=== PATIENT | male | born 1960 | race Hispanic/Latino ===

== ENCOUNTER → 2019-08-26 | Day surgery (SDC) | payer BC ==
[2019-08-23 17:15] LABS: BASOPHILS % 0.6 % (0.0-1.0); EOSINOPHILS # (AUTO) 0.2 (0.0-0.4); EOSINOPHILS % 3.4 % (0.0-6.0); HEMATOCRIT 39.8 % (38.2-49.6); HEMOGLOBIN 13.7 g/dL (14.0-18.0); LYMPHOCYTES # (AUTO) 1.5 (1.0-3.2); LYMPHOCYTES % 32.8 % (18.0-39.1); MEAN CORPUSCULAR HEMOGLOBIN 32.4 pg (28-32); MEAN CORPUSCULAR HGB CONC 34.4 g/dL (31-35); MEAN CORPUSCULAR VOLUME 94.1 fL (81-99); MONOCYTES # (AUTO) 0.6 (0.2-0.8); MONOCYTES % 11.7 % (4.4-11.3); NEUTROPHILS # (AUTO) 2.4 (2.1-6.9); NEUTROPHILS % 51.3 % (38.7-80.0); PLATELET COUNT 107 x10e3/uL (140-360); RED BLOOD COUNT 4.23 x10e6/uL (4.3-5.7); RED CELL DISTRIBUTION WIDTH 14.2 % (11.7-14.4)
[2019-08-23 17:31] LABS: ANION GAP 12.2 mmol/L (8-16); BLOOD UREA NITROGEN 18 mg/dL (7-26); BUN/CREATININE RATIO 21 (6-25); CALCIUM 9.9 mg/dL (8.4-10.2); CARBON DIOXIDE 26 mmol/L (22-29); CHLORIDE 104 mmol/L (98-107); CREATININE, SERUM 0.87 mg/dL (0.72-1.25); EST GLOMERULAR FILTRATION RATE > 60 ML/MIN (60-); GLUCOSE 83 mg/dL (74-118); POTASSIUM 4.2 mmol/L (3.5-5.1); SODIUM 138 mmol/L (136-145)
[2019-08-23 17:49] LABS: BILIRUBIN,DIRECT 0.3 mg/dL (0.0-0.5)
--- NOTE | 2019-08-23 17:49 | Diagnostic Imaging Report ---
Frontal and lateral views of the chest. HISTORY: Preop, screening colonoscopy COMPARISON: None available. DISCUSSION: Lungs: No evidence of a consolidative pneumonia or pulmonary alveolar edema. Pleura: No pleural effusion or pneumothorax. Heart and mediastinum: The cardiomediastinal silhouette appear(s) unremarkable. Bones and soft tissues: Mild right convex curvature of the thoracic spine. IMPRESSION: No acute radiographic abnormality. Signed by: Dr. Eben Guy D.O., M.M.M. on 08/23/2019 5:46 PM
[~2019-08-26] MED LIST: AMLODIPINE BESYL5 MG PO; ATENOLOL50 MG PO; FENTANYL CITRATE/PF 100MCG/2 ML INJ ONE; LIDOCAINE HCL 2% LOCAL INJ 5 ML SDV VIAL INJ ONE; MIDAZOLAM HCL 2 MG/2 ML VIAL ONE; PROPOFOL IV EMULSION 10 MG/ML 20 ML VIAL ONE
--- OUTSIDE RECORDS SUMMARY | 2019-08-26 05:47 | XMS REPORT | Summary of Care ---
Author Author [facility] [place] Organization [facility] [place] Address Unknown Phone Unavailable Encounter HQ Linda(FIN) [phone] Date(s): 10/09/18 - 10/09/18 [facility] [address] [place] [phone] Encounter Diagnosis Abnormality of alphafetoprotein (Final) - 10/15/18 Other cirrhosis of liver (Final) - Other ascites (Final) - Chronic viral hepatitis C (Final) - Calculus of kidney (Final) - Discharge Disposition: Home or Self Care Attending Physician: Vanda Rashid NP Referring Physician: Vanda Rashid NP Vital Signs No data available for this section Problem List Condition Effective Dates Status Health Status Informant Anemia(Confirmed) Active Cirrhosis(Confirmed) Active Esophageal Active varices(Confirmed) Migraine(Confirmed) Resolved HTN Resolved (hypertension)(Confi rmed) Hypertension(Confirm Active ed) Jaundice(Confirmed) Resolved Elevated liver Active enzymes(Confirmed) Liver Active mass(Confirmed) Low back Active pain(Confirmed) Nausea & Resolved vomiting(Confirmed) Class 1 Active obesity(Confirmed) Colon Resolved polyps(Confirmed) Hepatitis Active C(Confirmed) Weight Active loss(Confirmed) Allergies, Adverse Reactions, Alerts No Known Medication Allergies Medications No data available for this section Results No data available for this section Immunizations Not Given Vaccine Date Status Refusal Reason influenza virus vaccine, inactivated 01/13/18 Not Given Patient Refuses Procedures Procedure Date Related Diagnosis Body Site Status Colonoscopy1, 2 09/04/17 Completed 1repeat 09/15 2repeat 3 years Social History Social History Type Response Substance Abuse Use: None. Exercise Exercise type: Walking. Employment/School Status: Employed. 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 Alcohol Current, Type Beer. Frequency: 1-2 times per week. Smoking Status Former smoker; Type: Cigarettes; Concerns about tobacco use in household: No; Exposure to Tobacco Smoke self; Cigarette Smoking Last 365 Days Yes; Reg Smoking Cessation Counseling Yes1 entered on: 03/07/19 1STOP SMOKING IN THE LAST 6MONTHS Assessment and Plan No data available for this section
--- OUTSIDE RECORDS SUMMARY | 2019-08-26 05:47 | XMS REPORT | Continuity of Care Document ---
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 01/03/2019 [facility] ELECTROLYTES B/C Ratio 14 6 - 25 01/03/2019 [facility] ELECTROLYTES Globulin 4.3 2.7 - 4.2 01/03/2019 [facility] ELECTROLYTES A/G Ratio 1.0 0.7 - 1.6 01/03/2019 [facility] ELECTROLYTES Glucose Lvl 114 70 - 99 01/03/2019 [facility] ELECTROLYTES BUN 13 7 - 22 01/03/2019 [facility] ELECTROLYTES Creatinine Lvl 0.95 0.50 - 1.40 01/03/2019 [facility] ELECTROLYTES Sodium Lvl 139 135 - 145 01/03/2019 [facility] ELECTROLYTES Potassium Lvl 3.8 3.5 - 5.1 01/03/2019 [facility] ELECTROLYTES Chloride Lvl 107 95 - 109 01/03/2019 [facility] ELECTROLYTES CO2 29 24 - 32 01/03/2019 [facility] ELECTROLYTES Calcium Lvl 9.5 8.5 - 10.5 01/03/2019 [facility] ELECTROLYTES Total Protein 8.4 6.4 - 8.4 01/03/2019 [facility] ELECTROLYTES Albumin Lvl 4.1 3.5 - 5.0 01/03/2019 [facility] ELECTROLYTES ALT 33 0 - 65 01/03/2019 [facility] ELECTROLYTES AST 32 0 - 37 01/03/2019 [facility] ELECTROLYTES Alk Phos 108 39 - 136 01/03/2019 [facility] ELECTROLYTES Bili Total 0.9 0.2 - 1.3 01/03/2019 [facility] ELECTROLYTES eGFR 87 01/03/2019 Result Comment: The eGFR is calculated using the CKD-EPI formula. In most young, healthy individuals the eGFR will be >90 mL/min/1.73m2. The eGFR declines with age. An eGFR of 60-89 may be normal in some populations, particularly the elderly, for whom the CKD-EPI formula has not been extensively validated. Use of the eGFR is not recommended in the following populations:

Individuals with unstable creatinine concentrations, including patients and those with serious co-morbid conditions.

Patients with extremes in muscle mass or diet.

The data above are obtained from the National Kidney Disease Education Program (NKDEP) which additionally recommends that when the eGFR is used in patients with extremes of body mass index for purposes of drug dosing, the eGFR should be multiplied by the estimated BMI. [facility] WBC 4.5 3.7 - 10.4 01/03/2019 [facility] RBC 4.25 4.70 - 6.10 01/03/2019 [facility] Hgb 13.9 14.0 - 18.0 01/03/2019 [facility] Hct 41.0 42.0 - 54.0 01/03/2019 [facility] MCV 96.5 80.0 - 94.0 01/03/2019 [facility] MCH 32.7 27.0 - 31.0 01/03/2019 [facility] MCHC 33.8 32.0 - 36.0 01/03/2019 [facility] RDW 14.5 11.5 - 14.5 01/03/2019 [facility] Platelet 88 133 - 450 01/03/2019 [facility] MPV 9.4 7.4 - 10.4 01/03/2019 [facility] Segs 68.5 45.0 - 75.0 01/03/2019 [facility] Lymphocytes 20.5 20.0 - 40.0 01/03/2019 [facility] Monocytes 8.9 2.0 - 12.0 01/03/2019 [facility] HEMATOLOGY Eosinophils 1.3 0.0 - 4.0 01/03/2019 [facility] HEMATOLOGY Basophils 0.8 0.0 - 1.0 01/03/2019 [facility] HEMATOLOGY Neutrophils # 3.1 1.5 - 8.1 01/03/2019 [facility] HEMATOLOGY Lymphocytes # 0.9 1.0 - 5.5 01/03/2019 [facility] HEMATOLOGY Monocytes # 0.4 0.0 - 0.8 01/03/2019 [facility] HEMATOLOGY Eosinophils # 0.1 0.0 - 0.5 01/03/2019 [facility] URINE AND STOOL UA Color Yellow *NA* (01/02/19 8:00 PM) Yellow 01/03/2019 [facility] URINE AND STOOL UA Turbidity Clear (01/02/19 8:00 PM) Clear 01/03/2019 [facility] URINE AND STOOL UA Spec Grav 1.014 <=1.030 01/03/2019 [facility] URINE AND STOOL UA pH 7.0 5.0 - 8.0 01/03/2019 [facility] URINE AND STOOL UA Protein Negative (01/02/19 8:00 PM) Negative 01/03/2019 [facility] URINE AND STOOL UA Glucose Negative *NA* (01/02/19 8:00 PM) Negative 01/03/2019 [facility] URINE AND STOOL UA Ketones Negative *NA* (01/02/19 8:00 PM) Negative 01/03/2019 [facility] URINE AND STOOL UA Bili Negative *NA* (01/02/19 8:00 PM) Negative 01/03/2019 [facility] URINE AND STOOL UA Blood Negative (01/02/19 8:00 PM) Negative 01/03/2019 [facility] URINE AND STOOL UA Nitrite Negative (01/02/19 8:00 PM) Negative 01/03/2019 [facility] URINE AND STOOL UA Leuk Est Negative (01/02/19 8:00 PM) Negative 01/03/2019 [facility] URINE AND STOOL UA Sq Epi None Seen (01/02/19 8:00 PM) Few 01/03/2019 [facility] URINE AND STOOL UA WBC 2 0 - 5 01/03/2019 [facility] URINE AND STOOL UA RBC 2 0 - 2 01/03/2019 [facility] URINE AND STOOL UA Mucus Few /LPF None Seen /LPF 01/03/2019 [facility] URINE AND STOOL UA Urobilinogen 0.2 0.1 - 1.0 01/03/2019 Result Comment: Urobilinogen performed on the [employer]inite[employer] analyzer. 01/02/2019 20:41 [facility] CHEM PANEL Total Protein 7.3 6.4 - 8.4 10/19/2018 [facility] CHEM PANEL Bili Indirect 0.5 0.0 - 1.0 10/19/2018 [facility] CHEM PANEL ALT 32 0 - 65 10/19/2018 [facility] CHEM PANEL Bili Total 0.9 0.2 - 1.3 10/19/2018 [facility] CHEM PANEL Bili Direct 0.4 0.0 - 0.3 10/19/2018 [facility] CHEM PANEL AST 36 0 - 37 10/19/2018 [facility] CHEM PANEL Albumin Lvl 3.4 3.5 - 5.0 10/19/2018 [facility] CHEM PANEL Alk Phos 99 39 - 136 10/19/2018 [facility] CHEM PANEL A/G Ratio 0.9 0.7 - 1.6 10/19/2018 [facility] CHEM PANEL Globulin 3.9 2.7 - 4.2 10/19/2018 [facility] ELECTROLYTES AGAP 10.7 10.0 - 20.0 10/19/2018 [facility] ELECTROLYTES eGFR 98 10/19/2018 Result Comment: The eGFR is calculated using the CKD-EPI formula. In most young, healthy individuals the eGFR will be >90 mL/min/1.73m2. The eGFR declines with age. An eGFR of 60-89 may be normal in some populations, particularly the elderly, for whom the CKD-EPI formula has not been extensively validated. Use of the eGFR is not recommended in the following populations:

Individuals with unstable creatinine concentrations, including patients and those with serious co-morbid conditions.

Patients with extremes in muscle mass or diet.

The data above are obtained from the National Kidney Disease Education Program (NKDEP) which additionally recommends that when the eGFR is used in patients with extremes of body mass index for purposes of drug dosing, the eGFR should be multiplied by the estimated BMI. [facility] ELECTROLYTES Creatinine Lvl 0.79 0.50 - 1.40 10/19/2018 [facility] ELECTROLYTES Calcium Lvl 8.9 8.5 - 10.5 10/19/2018 [facility] ELECTROLYTES Sodium Lvl 141 135 - 145 10/19/2018 [facility] ELECTROLYTES Chloride Lvl 106 95 - 109 10/19/2018 [facility] ELECTROLYTES Potassium Lvl 3.7 3.5 - 5.1 10/19/2018 [facility] ELECTROLYTES CO2 28 24 - 32 10/19/2018 [facility] ELECTROLYTES Glucose Lvl 99 70 - 99 10/19/2018 [facility] ELECTROLYTES BUN 13 7 - 22 10/19/2018 [facility] HEMATOLOGY INR 1.15 0.85 - 1.17 10/19/2018 [facility] HEMATOLOGY PT 14.7 12.0 - 14.7 10/19/2018 [facility] HEMATOLOGY MCHC 33.6 32.0 - 36.0 10/19/2018 [facility] HEMATOLOGY Platelet 92 133 - 450 10/19/2018 [facility] HEMATOLOGY RDW 14.2 11.5 - 14.5 10/19/2018 [facility] HEMATOLOGY MPV 9.8 7.4 - 10.4 10/19/2018 [facility] HEMATOLOGY WBC 3.0 3.7 - 10.4 10/19/2018 [facility] HEMATOLOGY Hgb 12.2 14.0 - 18.0 10/19/2018 [facility] HEMATOLOGY MCV 102.1 80.0 - 94.0 10/19/2018 [facility] HEMATOLOGY Hct 36.4 42.0 - 54.0 10/19/2018 [facility] HEMATOLOGY RBC 3.56 4.70 - 6.10 10/19/2018 [facility] HEMATOLOGY MCH 34.4 27.0 - 31.0 10/19/2018 [facility] HEMATOLOGY Lymphocytes # 1.3 1.0 - 5.5 10/19/2018 [facility] HEMATOLOGY Monocytes # 0.4 0.0 - 0.8 10/19/2018 [facility] HEMATOLOGY Eosinophils # 0.1 0.0 - 0.5 10/19/2018 [facility] HEMATOLOGY Macrocyte 1+ *ABN* (10/19/18 10:30 AM) None Seen 10/19/2018 [facility] HEMATOLOGY Neutrophils # 1.1 1.5 - 8.1 10/19/2018 [facility] HEMATOLOGY Basophils 0.8 0.0 - 1.0 10/19/2018 [facility] HEMATOLOGY Eosinophils 4.2 0.0 - 4.0 10/19/2018 [facility] HEMATOLOGY Monocytes 12.6 2.0 - 12.0 10/19/2018 [facility] HEMATOLOGY Lymphocytes 44.5 20.0 - 40.0 10/19/2018 [facility] HEMATOLOGY Segs 37.9 45.0 - 75.0 10/19/2018 [facility] MOLECULAR DIAGNOSTIC HCV RNA Log10 1.3 10/19/2018 [facility] MOLECULAR DIAGNOSTIC HCV RNA VirLoad 19 10/19/2018 [facility] TUMOR MARKERS AFP 39.2 0.0 - 11.0 10/19/2018 [facility] CHEM PANEL Bili Indirect 0.5 0.0 - 1.0 09/27/2018 [facility] CHEM PANEL ALT 34 0 - 65 09/27/2018 [facility] CHEM PANEL Bili Direct 0.9 0.0 - 0.3 09/27/2018 [facility] CHEM PANEL Alk Phos 107 39 - 136 09/27/2018 [facility] CHEM PANEL Bili Total 1.4 0.2 - 1.3 09/27/2018 [facility] CHEM PANEL AST 39 0 - 37 09/27/2018 [facility] CHEM PANEL Total Protein 7.4 6.4 - 8.4 09/27/2018 [facility] CHEM PANEL Albumin Lvl 3.2 3.5 - 5.0 09/27/2018 [facility] CHEM PANEL Globulin 4.2 2.7 - 4.2 09/27/2018 [facility] CHEM PANEL A/G Ratio 0.8 0.7 - 1.6 09/27/2018 [facility] CHEM PANEL eGFR 100 09/27/2018 Result Comment: The eGFR is calculated using the CKD-EPI formula. In most young, healthy individuals the eGFR will be >90 mL/min/1.73m2. The eGFR declines with age. An eGFR of 60-89 may be normal in some populations, particularly the elderly, for whom the CKD-EPI formula has not been extensively validated. Use of the eGFR is not recommended in the following populations:

Individuals with unstable creatinine concentrations, including patients and those with serious co-morbid conditions.

Patients with extremes in muscle mass or diet.

The data above are obtained from the National Kidney Disease Education Program (NKDEP) which additionally recommends that when the eGFR is used in patients with extremes of body mass index for purposes of drug dosing, the eGFR should be multiplied by the estimated BMI. [facility] CHEM PANEL Chloride Lvl 104 95 - 109 09/27/2018 [facility] CHEM PANEL CO2 27 24 - 32 09/27/2018 [facility] CHEM PANEL Calcium Lvl 8.8 8.5 - 10.5 09/27/2018 [facility] CHEM PANEL Potassium Lvl 3.7 3.5 - 5.1 09/27/2018 [facility] CHEM PANEL Creatinine Lvl 0.77 0.50 - 1.40 09/27/2018 [facility] CHEM PANEL Glucose Lvl 98 70 - 99 09/27/2018 [facility] CHEM PANEL BUN 10 7 - 22 09/27/2018 [facility] CHEM PANEL Sodium Lvl 141 135 - 145 09/27/2018 [facility] CHEM PANEL AGAP 13.7 10.0 - 20.0 09/27/2018 [facility] CHEM PANEL A 2 Macroglob 420 110 - 276 09/27/2018 [facility] CHEM PANEL Fibrosis Score 0.91 0.00 - 0.21 09/27/2018 [facility] CHEM PANEL Fibrosis Stage Comment 09/27/2018 Result Comment: F4 - Cirrhosis [facility] CHEM PANEL Necroinflam Act Scoring Comment 09/27/2018 Result Comment:
<0.17=Grade A0 - No Activity
0.17 - 0.29=Grade A0 - A1
0.29 - 0.36=Grade A1 - Minimal activity
0.36 - 0.52=Grade A1 - A2
0.52 - 0.60=Grade A2 - Moderate activity
0.60 - 0.62=Grade A2 - A3
>0.62=Grade A3 - Severe activity [facility] CHEM PANEL Fibrosis Scoring Comment 09/27/2018 Result Comment:
<0.21=Stage F0 - No fibrosis
0.21 - 0.27=Stage F0 - F1
0.27 - 0.31=Stage F1 - Portal fibrosis
0.31 - 0.48=Stage F1 - F2
0.48 - 0.58=Stage F2 - Bridging fibrosis with few septa
0.58 - 0.72=Stage F3 - Bridging fibrosis with many septa
0.72 - 0.74=Stage F3 - F4
>0.74=Stage F4 - Cirrhosis [facility] CHEM PANEL Fibrosis Interp Comment 09/27/2018 Result Comment:
Quantitative results of 6 biochemical tests are analyzed
using a computational algorithm to provide a quantitative
surrogate marker (0.0-1.0) for liver fibrosis (METAVIR F0-
F4) and for necroinflammatory activity (METAVIR A0-A3). [facility] CHEM PANEL ALANINE AMINOTRANSFERASE 29 0 - 55 09/27/2018 [facility] CHEM PANEL Necroinflam Act. Grade A0-A1 09/27/2018 [facility] CHEM PANEL Necroinflam Act. Score 0.29 0.00 - 0.17 09/27/2018 [facility] CHEM PANEL GAMMA GLUTAMYL TRANSFERASE 77 0 - 65 09/27/2018 [facility] CHEM PANEL Bili Total 1.5 0.0 - 1.2 09/27/2018 [facility] CHEM PANEL Haptoglobin 63 34 - 200 09/27/2018 [facility] CHEM PANEL Apolipoprotein A-1 132 101 - 178 09/27/2018 [facility] CHEM PANEL Liver Fibrosis Comment 2 Comment 09/27/2018 Result Comment:
This test was developed and its performance characteristics
determined by [facility]. It has not been cleared or approved
by the Food and Drug Administration. The FDA has
determined that such clearance or approval is not
necessary.

For questions regarding this report please contact customer
service at 1- [phone].
Performed At: [facility]
[address], [place] [id number]
Norman Bang MD Ph:[phone] [facility] CHEM PANEL Liver Fibrosis Limitations Comment 09/27/2018 Result Comment: The negative predictive value of a Fibrotest score <0.31
(absence of clinically significant fibrosis) was 85% when
compared to liver biopsy in 1,270 HCV infected patients
with a 38% prevalence of significant liver fibrosis (F2, 3
or 4). The positive predictive value of a Fibro-test score
>0.48 (F2, 3, 4) was 61% in that same patient cohort. HCV
FibroSURE is not recommended in patients with Gilbert
Disease, acute hemolysis (e.g. HCV ribavirin therapy
mediated hemolysis) acute hepa-titis of the liver, extra-
hepatic cholestasis, transplant patients, and/or renal
insufficiency patients. Any of these clinical situations
may lead to inaccurate quantitative predictions of
fibrosis and necroinflammatory activity in the liver. [facility] HEMATOLOGY INR 1.11 0.85 - 1.17 09/27/2018 [facility] HEMATOLOGY PT 14.3 12.0 - 14.7 09/27/2018 [facility] HEMATOLOGY Platelet 89 133 - 450 09/27/2018 [facility] HEMATOLOGY MPV 9.4 7.4 - 10.4 09/27/2018 [facility] HEMATOLOGY RDW 14.9 11.5 - 14.5 09/27/2018 [facility] HEMATOLOGY MCHC 34.1 32.0 - 36.0 09/27/2018 [facility] HEMATOLOGY Hgb 12.5 14.0 - 18.0 09/27/2018 [facility] HEMATOLOGY Hct 36.6 42.0 - 54.0 09/27/2018 [facility] HEMATOLOGY RBC 3.53 4.70 - 6.10 09/27/2018 [facility] HEMATOLOGY WBC 5.3 3.7 - 10.4 09/27/2018 [facility] HEMATOLOGY MCH 35.3 27.0 - 31.0 09/27/2018 [facility] HEMATOLOGY MCV 103.8 80.0 - 94.0 09/27/2018 [facility] HEMATOLOGY DNA Mutation Analysis Comment 09/27/2018 Result Comment: NO MUTATION IDENTIFIED

Interpretation:
This patient's sample was analyzed for the hereditary
hemochromatosis (HH) mutations C282Y, H63D, S65C. No
mutation was identified. The mutations analyzed by [facility] [facility]
are most common in the population, and up to 90%
of affected Caucasians will have a positive test result.
Because this panel does not identify rare HH mutations or
HH mutations found in other ethnic groups, there are a
small number of people who may have a negative test but may
actually be affected. The diagnosis of HH should include
clinical findings and other test results such as
transferrin- iron saturation and/or serum ferritin studies
and/or liver biopsy. If this patient has a history of HH,
in many cases a specific carrier risk can be determined
based on this negative result.
Methodology:
DNA Analysis of the HFE gene was performed by PCR
amplification followed by restriction enzyme digestion
analyses.

Reference:
Eze JS and Dandre AP. (2000). Ashleigh Test 4:97-101.
Lashanda NELSON et al. (1999). AM J Prev Med 16:134-140.
Dia Edward (2002). Lancet 360(4947):1673-22.
Jocelyn Katz et al. (2002). Blood Cells, Molecules. and
Diseases. 29(3):418- 432.
Jere Paredes et al. (2003). Ashleigh Med. 5(1):1-8.
Lashanda NELSON et al. (2003). Ashleigh Med. 5(4):304-10.

This test was developed and its performance characteristics
determined by [facility]. It has not been cleared or approved
by the Food and Drug Administration.

Genetic counselors are available for health care providers
to discuss results at [phone].

Elisabet Terry, PhD, [facility]
Aide Maria, PhD, [facility]
Lisa Holt M.S., PhD, [facility]
Kimberley Guy, PhD, [facility]
Leroy Sanchez, PhD, [facility]
Jose Alberto Gillette, PhD, [facility]
Performed At: [facility]
[address] [place], [place] [id number]
Bobby Canela MD Ph:[phone] [facility] HEMATOLOGY Lymphocytes # 1.4 1.0 - 5.5 09/27/2018 [facility] HEMATOLOGY Neutrophils # 3.0 1.5 - 8.1 09/27/2018 [facility] HEMATOLOGY Basophils 0.6 0.0 - 1.0 09/27/2018 [facility] HEMATOLOGY Eosinophils 3.6 0.0 - 4.0 09/27/2018 [facility] HEMATOLOGY Eosinophils # 0.2 0.0 - 0.5 09/27/2018 [facility] HEMATOLOGY Monocytes # 0.7 0.0 - 0.8 09/27/2018 [facility] HEMATOLOGY Segs 57.4 45.0 - 75.0 09/27/2018 [facility] HEMATOLOGY Monocytes 12.3 2.0 - 12.0 09/27/2018 [facility] HEMATOLOGY Lymphocytes 26.1 20.0 - 40.0 09/27/2018 [facility] HEMATOLOGY Macrocyte 1+ *ABN* (09/27/18 11:05 AM) None Seen 09/27/2018 [facility] MOLECULAR DIAGNOSTIC HBV DNA Log10 <1.3 09/27/2018 [facility] MOLECULAR DIAGNOSTIC Hep B PCR Qnt Not Detected (09/27/18 11:05 AM) 09/27/2018 [facility] MOLECULAR DIAGNOSTIC HCV RNA VirLoad 278 09/27/2018 [facility] MOLECULAR DIAGNOSTIC HCV RNA Log10 2.4 09/27/2018 [facility] TUMOR MARKERS AFP 173.1 0.0 - 11.0 09/27/2018 [facility] CHEM PANEL eGFR 98 08/29/2018 Result Comment: The eGFR is calculated using the CKD-EPI formula. In most young, healthy individuals the eGFR will be >90 mL/min/1.73m2. The eGFR declines with age. An eGFR of 60-89 may be normal in some populations, particularly the elderly, for whom the CKD-EPI formula has not been extensively validated. Use of the eGFR is not recommended in the following populations:

Individuals with unstable creatinine concentrations, including patients and those with serious co-morbid conditions.

Patients with extremes in muscle mass or diet.

The data above are obtained from the National Kidney Disease Education Program (NKDEP) which additionally recommends that when the eGFR is used in patients with extremes of body mass index for purposes of drug dosing, the eGFR should be multiplied by the estimated BMI. [facility] CHEM PANEL POC Creatinine 0.8 0.5 - 1.4 08/29/2018 [facility] ANEMIA STUDY TIBC 269 228 - 428 08/17/2018 [facility] ANEMIA STUDY Iron 258 45 - 160 08/17/2018 [facility] ANEMIA STUDY UIBC 11 110 - 370 08/17/2018 [facility] ANEMIA STUDY % Satur Fe 96 12 - 57 08/17/2018 [facility] ANEMIA STUDY Ferritin Lvl 590 22 - 275 08/17/2018 [facility] CHEM PANEL Ammonia 43.0 <=45.0 uMol/L 08/17/2018 [facility] CHEM PANEL Bili Total 3.3 0.2 - 1.3 08/17/2018 [facility] CHEM PANEL Bili Direct 2.5 0.0 - 0.3 08/17/2018 [facility] CHEM PANEL Bili Indirect 0.8 0.0 - 1.0 08/17/2018 [facility] CHEM PANEL ALT 75 0 - 65 08/17/2018 [facility] CHEM PANEL AST 107 0 - 37 08/17/2018 [facility] CHEM PANEL Alk Phos 132 39 - 136 08/17/2018 [facility] CHEM PANEL Albumin Lvl 3.0 3.5 - 5.0 08/17/2018 [facility] CHEM PANEL Total Protein 7.4 6.4 - 8.4 08/17/2018 [facility] CHEM PANEL Globulin 4.4 2.7 - 4.2 08/17/2018 [facility] CHEM PANEL A/G Ratio 0.7 0.7 - 1.6 08/17/2018 [facility] CHEM PANEL eGFR 98 08/17/2018 Result Comment: The eGFR is calculated using the CKD-EPI formula. In most young, healthy individuals the eGFR will be >90 mL/min/1.73m2. The eGFR declines with age. An eGFR of 60-89 may be normal in some populations, particularly the elderly, for whom the CKD-EPI formula has not been extensively validated. Use of the eGFR is not recommended in the following populations:

Individuals with unstable creatinine concentrations, including patients and those with serious co-morbid conditions.

Patients with extremes in muscle mass or diet.

The data above are obtained from the National Kidney Disease Education Program (NKDEP) which additionally recommends that when the eGFR is used in patients with extremes of body mass index for purposes of drug dosing, the eGFR should be multiplied by the estimated BMI. [facility] CHEM PANEL Potassium Lvl 3.8 3.5 - 5.1 08/17/2018 [facility] CHEM PANEL CO2 29 24 - 32 08/17/2018 [facility] CHEM PANEL Calcium Lvl 9.2 8.5 - 10.5 08/17/2018 [facility] CHEM PANEL Sodium Lvl 141 135 - 145 08/17/2018 [facility] CHEM PANEL Chloride Lvl 105 95 - 109 08/17/2018 [facility] CHEM PANEL BUN 11 7 - 22 08/17/2018 [facility] CHEM PANEL Glucose Lvl 100 70 - 99 08/17/2018 [facility] CHEM PANEL Creatinine Lvl 0.81 0.50 - 1.40 08/17/2018 [facility] CHEM PANEL AGAP 10.8 10.0 - 20.0 08/17/2018 [facility] DRUG SCREEN Cannab Scr Negative (08/17/18 10:30 AM) Negative 08/17/2018 [facility] DRUG SCREEN Phencyclidine Scr Negative (08/17/18 10:30 AM) Negative 08/17/2018 [facility] DRUG SCREEN Opiate Scr Negative (08/17/18 10:30 AM) Negative 08/17/2018 [facility] DRUG SCREEN Methadone Scr Negative (08/17/18 10:30 AM) Negative 08/17/2018 [facility] DRUG SCREEN Cocaine Scr Negative (08/17/18 10:30 AM) Negative 08/17/2018 [facility] DRUG SCREEN Benzodiaz Scr Negative (08/17/18 10:30 AM) Negative 08/17/2018 [facility] DRUG SCREEN Sienna Scr Negative (08/17/18 10:30 AM) Negative 08/17/2018 [facility] DRUG SCREEN Amph Scr Negative (08/17/18 10:30 AM) Negative 08/17/2018 [facility] DRUG SCREEN 6-Acetylmor Scr Negative (08/17/18 10:30 AM) Negative 08/17/2018 [facility] DRUG SCREEN Cutoff Values See Note (08/17/18 10:30 AM) 08/17/2018 [facility] HEMATOLOGY Monocytes # 0.4 0.0 - 0.8 08/17/2018 [facility] HEMATOLOGY Eosinophils # 0.1 0.0 - 0.5 08/17/2018 [facility] HEMATOLOGY Eosinophils 3.2 0.0 - 4.0 08/17/2018 [facility] HEMATOLOGY Basophils 0.3 0.0 - 1.0 08/17/2018 [facility] HEMATOLOGY Lymphocytes # 1.1 1.0 - 5.5 08/17/2018 [facility] HEMATOLOGY Neutrophils # 2.4 1.5 - 8.1 08/17/2018 [facility] HEMATOLOGY Monocytes 10.2 2.0 - 12.0 08/17/2018 [facility] HEMATOLOGY Segs 59.0 45.0 - 75.0 08/17/2018 [facility] HEMATOLOGY Lymphocytes 27.3 20.0 - 40.0 08/17/2018 [facility] HEMATOLOGY INR 1.11 0.85 - 1.17 08/17/2018 [facility] HEMATOLOGY PT 14.3 12.0 - 14.7 08/17/2018 [facility] HEMATOLOGY MPV 10.1 7.4 - 10.4 08/17/2018 [facility] HEMATOLOGY RDW 19.4 11.5 - 14.5 08/17/2018 [facility] HEMATOLOGY Platelet 87 133 - 450 08/17/2018 [facility] HEMATOLOGY MCHC 34.7 32.0 - 36.0 08/17/2018 [facility] HEMATOLOGY Hct 37.4 42.0 - 54.0 08/17/2018 [facility] HEMATOLOGY MCV 99.6 80.0 - 94.0 08/17/2018 [facility] HEMATOLOGY MCH 34.6 27.0 - 31.0 08/17/2018 [facility] HEMATOLOGY Hgb 13.0 14.0 - 18.0 08/17/2018 [facility] HEMATOLOGY WBC 4.1 3.7 - 10.4 08/17/2018 [facility] HEMATOLOGY RBC 3.76 4.70 - 6.10 08/17/2018 [facility] IMMUNOLOGY HIV Ag/Ab 4th Gen Negative *NA* (08/17/18 10:30 AM) Negative 08/17/2018 [facility] IMMUNOLOGY IgG Lvl 1690 700 - 1600 08/17/2018 [facility] IMMUNOLOGY IgG3 210 15 - 102 08/17/2018 [facility] IMMUNOLOGY IgG2 288 130 - 555 08/17/2018 [facility] IMMUNOLOGY IgG1 1189 248 - 810 08/17/2018 [facility] IMMUNOLOGY IgG4 56 2 - 96 08/17/2018 Result Comment: Performed At: [facility]
[address], [place] [id number]
Soraida Calderon MD Ph:[phone]
Performed At: [facility]
[address] [place], [place] [id number]
Rigo Rowell MD Ph:[phone] [facility] IMMUNOLOGY Hep B Core Ab Positive *NA* (08/17/18 10:30 AM) Negative 08/17/2018 [facility] IMMUNOLOGY Hep Bs Ab <3.1 <=7.4 mIU/mL 08/17/2018 [facility] IMMUNOLOGY Hep A Tot Positive *NA* (08/17/18 10:30 AM) Negative 08/17/2018 [facility] TOXICOLOGY Etoh (%) <0.003 08/17/2018 [facility] TOXICOLOGY Ethanol Lvl <3 08/17/2018 [facility] TUMOR MARKERS CA 19-9 24.2 0.0 - 35.0 08/17/2018 [facility] TUMOR MARKERS CEA 4.1 0.0 - 3.0 08/17/2018 [facility] TUMOR MARKERS AFP 77.1 0.0 - 11.0 08/17/2018 [facility] DRUG SCREEN U Phencyc Scr Negative *NA* (01/14/18 5:35 AM) Negative 01/14/2018 [facility] DRUG SCREEN U Opiate Scr Positive *ABN* (01/14/18 5:35 AM) Negative 01/14/2018 [facility] DRUG SCREEN UDS Note See Note (01/14/18 5:35 AM) 01/14/2018 [facility] DRUG SCREEN U Cannab Scr Positive *ABN* (01/14/18 5:35 AM) Negative 01/14/2018 [facility] DRUG SCREEN U Benzodia Scr Negative *NA* (01/14/18 5:35 AM) Negative 01/14/2018 [facility] DRUG SCREEN U Sienna Scr Negative *NA* (01/14/18 5:35 AM) Negative 01/14/2018 [facility] DRUG SCREEN U Cocaine Scr Negative *NA* (01/14/18 5:35 AM) Negative 01/14/2018 [facility] DRUG SCREEN U Amph Scr Negative *NA* (01/14/18 5:35 AM) Negative 01/14/2018 [facility] ANEMIA STUDY UIBC 119 110 - 370 01/14/2018 [facility] ANEMIA STUDY % Satur Fe 34 12 - 57 01/14/2018 [facility] ANEMIA STUDY TIBC 180 228 - 428 01/14/2018 [facility] ANEMIA STUDY Iron 61 45 - 160 01/14/2018 [facility] ANEMIA STUDY Ferritin Lvl 1099 22 - 275 01/14/2018 [facility] CHEM PANEL A/G Ratio 0.6 0.7 - 1.6 01/14/2018 [facility] CHEM PANEL AGAP 11.6 10.0 - 20.0 01/14/2018 [facility] CHEM PANEL Globulin 3.5 2.7 - 4.2 01/14/2018 [facility] CHEM PANEL B/C Ratio 13 6 - 25 01/14/2018 [facility] CHEM PANEL eGFR 103 01/14/2018 Result Comment: The eGFR is calculated using the CKD-EPI formula. In most young, healthy individuals the eGFR will be >90 mL/min/1.73m2. The eGFR declines with age. An eGFR of 60-89 may be normal in some populations, particularly the elderly, for whom the CKD-EPI formula has not been extensively validated. Use of the eGFR is not recommended in the following populations:

Individuals with unstable creatinine concentrations, including patients and those with serious co-morbid conditions.

Patients with extremes in muscle mass or diet.

The data above are obtained from the National Kidney Disease Education Program (NKDEP) which additionally recommends that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 pericholecystic fluid, decreased compared to the prior MRI. Findings likely secondary to chronic liver disease/presence of ascites. 4. No cholelithiasis or choledocholithiasis. Mild dilation of the common bile duct to 8 mm, nonspecific. SL: [id number] 08/29/2018 [facility] Abdomen w/wo contrast MRI Clinical Indication: - ELEVATED AFP; r/o mass; also elevated Directi Bili w questionable gall stone - r/o CBD stone. GFR 106. 16 cc Multihance Lot [id number] // Rona. History of hepatitis C. Jaundice. Fatigue and generalized weakness. Comparison: CT abdomen pelvis 01/13/2018, right upper quadrant sonogram 01/13/2018 TECHNIQUE: Multiplanar multisequence MR imaging of the abdomen was performed both prior to and following intravenous administration of contrast Contrast: 16 mL MultiHance intravenous FINDINGS: HEPATOBILIARY: The caudate lobe is hypertrophied. Liver signal intensity is normal. The liver enhances normally. Hepatic arterial anatomy is conventional. There is a 1 cm area of nodular venous enhancement within the inferior right lobe (14, 51) without washout. The main portal vein measures 13 mm in diameter. The portal vein is patent. The hepatic veins are patent. There is no intrahepatic biliary ductal dilatation. The gallbladder wall is diffusely edematous. There is edema at the gallbladder fossa and kevin hepatis. No appreciable gallstones. The common bile duct measures 6 mm. No appreciable intraductal stone. No biliary ductal dilatation. SPLEEN: The spleen enhances normally. The spleen measures 12 cm. PANCREAS: The pancreas enhances normally KIDNEYS: The kidneys are symmetric in size. The kidneys enhance normally. No hydronephrosis. ADRENAL GLANDS: The adrenal glands are normal. VASCULATURE: The abdominal aorta appears unremarkable. The inferior vena cava regions appear unremarkable. LYMPH NODES: No lymphadenopathy. BOWEL: The stomach appears unremarkable. Visualized loops of bowel are normal in caliber. FREE FLUID: No ascites. MUSCULOSKELETAL: The marrow signal is normal. IMPRESSION: 1. Diffuse gallbladder wall edema. Appearance may be related to cholecystitis, hepatitis or third spacing. Consider further evaluation with nuclear medicine hepatobiliary scan. 2. No choledocholithiasis seen 3. Mild changes of cirrhosis with hypertrophy of the caudate lobe 4. Indeterminate area of venous enhancement within the right lobe without suspicious washout or accompanying T2 signal abnormality. Recommend 6 month follow up. SL: [id number] 01/14/2018 [facility] Abdomen RUQ US Clinical Indication: - abdominal pain; Comparison: 01/12/2018 TECHNIQUE: Grayscale and limited color sonographic evaluation of the right upper quadrant of the abdomen and gallbladder region was performed with standard technique. FINDINGS: LIVER: The visualized liver shows normal contour, size 14 cm, and morphology with normal parenchymal echo texture. The limited visualized portal vein is grossly patent. BILE DUCTS: The intrahepatic and extrahepatic bile ducts are not dilated with the common bile duct measuring 6 mm. The distal common bile duct is not well seen. GALLBLADDER: An echogenic focus along the anterior wall of the gallbladder may represent calcification of the gallbladder wall versus a stone adherent to the anterior wall of the gallbladder. There is no gallbladder sludge, pericholecystic fluid or wall thickening. Cooper sign is absent. PANCREAS: Obscured by bowel gas.. KIDNEY: The right kidney measures 10.3 x 6.3 x 7.1 cm. There is normal renal contour and morphology, with normal parenchymal echotexture. There is no hydronephrosis. AORTA AND INFERIOR VENA CAVA: Visualized portions appear unremarkable. ASCITES: There is no right upper quadrant abdominal ascites. IMPRESSION: 1. Tiny calcification of the anterior gallbladder wall versus gallstone adherent to the gallbladder wall. No sonographic criteria for acute cholecystitis. 2. Otherwise unremarkable study. SL: [id number]-M 01/13/2018 [facility] ED Abdomen/Pelvis IV contrast only CT Clinical Indication: - abdominal pain, cirrhosis with jaundice. Comparison: None. TECHNIQUE: Sequential trans-axial images were obtained through the abdomen and pelvis with the administration of IV iodinated contrast. Coronal and sagittal reconstructions were obtained. Dose: XPK=4908 mGy-cm Findings: Lower thorax: Minimal scarring within the middle lobe. Liver: Normal. Gallbladder: Slightly prominent enhancement of the gallbladder wall with suggestion of minimal pericholecystic fluid or inflammation. No obvious radiopaque calculi. Spleen: Normal. Pancreas: Normal. Adrenals: Normal. Kidneys: Tiny lesion within the mid to lower pole of the left kidney is too small to be accurately characterized. Bladder: Normal. Prostate: Normal. Abdominal and pelvic lymph nodes: Normal. Bowel: Mild thickening the wall of the rectum may be due to proctitis. Prior surgery at the ileocecal valve. A few mildly prominent loops of proximal small bowel are noted but no bill bowel obstruction. Peritoneum: Normal. Osseous structures: Mild degenerative spurring of the lower thoracic and lumbar spine. Mild curvature of the lumbar spine convex to the left. IMPRESSION: Slightly prominent enhancement of the gallbladder wall with suggestion of minimal pericholecystic fluid and/or inflammation. Findings can be seen in the setting of cholecystitis. Recommend clinical correlation and possible ultrasound if clinically indicated. Mildly prominent loops of proximal small bowel which may be due to enteritis. SL: FELY 01/13/2018 [facility] Chest 1view DX Study: Frontal chest x-ray History: Short of breath Comments: The trachea is midline. The cardiomediastinal silhouette is normal in size. No pneumonia. No pleural effusions or pneumothorax. Impression: No acute cardiopulmonary disease. 01/12/2018 [facility] Consultation Notes No Data Provided for This Section Discharge Summaries No Data Provided for This Section History and Physicals No Data Provided for This Section Vital Signs Vital Sign Value Date Comments Source Systolic (mm Hg) 143 07/04/2019 [facility] Diastolic (mm Hg) 96 07/04/2019 [facility] Heart Rate 68 07/04/2019 [facility] Height 167.64 cm 07/04/2019 [facility] Weight 75.909 07/04/2019 [facility] BMI Calculated 27.01 07/04/2019 [facility] Height 167.64 cm 03/07/2019 [facility] Heart Rate 52 03/07/2019 [facility] Systolic (mm Hg) 133 03/07/2019 [facility] Diastolic (mm Hg) 81 03/07/2019 [facility] Respitory Rate 16 03/07/2019 [facility] Weight 78.636 03/07/2019 [facility] BMI Calculated 27.98 03/07/2019 [facility] Temperature Oral (F) 98.1 F 01/03/2019 [facility] Heart Rate 70 01/03/2019 [facility] Respitory Rate 20 01/03/2019 [facility] Systolic (mm Hg) 102 01/03/2019 [facility] Diastolic (mm Hg) 58 01/03/2019 [facility] Temperature Oral (F) 98.4 F 01/03/2019 [facility] Heart Rate 77 01/03/2019 [facility] Respitory Rate 19 01/03/2019 [facility] Systolic (mm Hg) 159 01/03/2019 [facility] Diastolic (mm Hg) 83 01/03/2019 [facility] Systolic (mm Hg) 159 01/03/2019 [facility] Diastolic (mm Hg) 82 01/03/2019 [facility] Heart Rate 77 01/03/2019 [facility] Respitory Rate 18 01/03/2019 [facility] Temperature Oral (F) 99.2 F 01/03/2019 [facility] Height 167.64 cm 01/03/2019 [facility] BMI Calculated 29.92 01/03/2019 [facility] Weight 84.091 01/03/2019 [facility] BMI Calculated 28.95 10/19/2018 [facility] Height 167.64 cm 10/19/2018 [facility] Weight 81.364 10/19/2018 [facility] Systolic (mm Hg) 133 10/19/2018 [facility] Diastolic (mm Hg) 86 10/19/2018 [facility] Heart Rate 69 10/19/2018 [facility] Respitory Rate 16 10/19/2018 [facility] Height 167.64 cm 09/27/2018 [facility] Weight 78.182 09/27/2018 [facility] [facility] BMI Calculated 27.82 09/27/2018 [facility] Heart Rate 73 09/27/2018 [facility] Respitory Rate 16 09/27/2018 [facility] Systolic (mm Hg) 145 09/27/2018 [facility] Diastolic (mm Hg) 91 09/27/2018 [facility] BMI Calculated 31.6 08/17/2018 [facility] Height 160.02 cm 08/17/2018 [facility] Weight 80.909 08/17/2018 [facility] Systolic (mm Hg) 140 08/17/2018 [facility] Diastolic (mm Hg) 87 08/17/2018 [facility] Heart Rate 62 08/17/2018 [facility] Respitory Rate 18 08/17/2018 [facility] Weight 77.727 03/30/2018 [facility] BMI Calculated 27.66 03/30/2018 [facility] Systolic (mm Hg) 129 03/30/2018 [facility] Diastolic (mm Hg) 70 03/30/2018 [facility] Height 167.64 cm 03/30/2018 [facility] Respitory Rate 14 03/30/2018 [facility] Temperature Oral (F) 98.3 F 03/30/2018 [facility] Heart Rate 75 03/30/2018 [facility] Temperature Oral (F) 99.6 F 01/14/2018 [facility] Heart Rate 75 01/14/2018 [facility] Systolic (mm Hg) 134 01/14/2018 [facility] Diastolic (mm Hg) 83 01/14/2018 [facility] Respitory Rate 18 01/14/2018 [facility] Systolic (mm Hg) 133 01/14/2018 [facility] Diastolic (mm Hg) 81 01/14/2018 [facility] Heart Rate 71 01/14/2018 [facility] Respitory Rate 18 01/14/2018 [facility] Temperature Oral (F) 98.7 F 01/14/2018 [facility] Systolic (mm Hg) 134 01/14/2018 [facility] Diastolic (mm Hg) 86 01/14/2018 [facility] Heart Rate 74 01/14/2018 [facility] Temperature Oral (F) 98.2 F 01/14/2018 [facility] Respitory Rate 18 01/14/2018 [facility] Weight 78.182 01/13/2018 [facility] BMI Calculated 28.68 01/13/2018 [facility] Height 165.1 cm 01/13/2018 [facility] Weight 81.364 01/13/2018 [facility] BMI Calculated 29.85 01/13/2018 [facility] Height 165.1 cm 01/13/2018 [facility] Weight 81.477 11/06/2017 [facility] BMI Calculated 28.99 11/06/2017 [facility] Height 167.64 cm 11/06/2017 [facility] Respitory Rate 14 11/06/2017 [facility] Heart Rate 60 11/06/2017 [facility] Temperature Oral (F) 97.5 F 11/06/2017 [facility] Systolic (mm Hg) 133 11/06/2017 [facility] Diastolic (mm Hg) 89 11/06/2017 [facility] Systolic (mm Hg) 95 09/04/2017 [facility] Diastolic (mm Hg) 66 09/04/2017 [facility] Respitory Rate 18 09/04/2017 [facility] Systolic (mm Hg) 95 09/04/2017 [facility] Diastolic (mm Hg) 68 09/04/2017 [facility] Respitory Rate 15 09/04/2017 [facility] Systolic (mm Hg) 101 09/04/2017 [facility] Diastolic (mm Hg) 85 09/04/2017 [facility] Respitory Rate 14 09/04/2017 [facility] BMI Calculated 29.29 08/28/2017 [facility] Weight 75 08/28/2017 [facility] Height 160.02 cm 08/28/2017 [facility] Encounters Location Location Details Encounter Type Encounter Number Reason For Visit Attending Provider ADM Date DC Date Status Source Outpatient [id number] DANNY VITAL 08/04/2017 [facility] Bedded Outpatient [id number] Kari Jarrod Chika 09/04/2017 09/04/2017 [facility] Outpatient [id number] MISSY WELLS 11/06/2017 [facility] Outpatient [id number] Missy Wells 11/06/2017 11/07/2017 [facility] Phone Message [id number] 11/19/2017 11/21/2017 Medical [facility] Phone Message [id number] 12/08/2017 12/10/2017 [facility] Phone Message [id number] 12/23/2017 12/25/2017 Medical [facility] Inpatient [id number] Ze Swann 01/13/2018 01/14/2018 [facility] Outpatient [id number] Kari Garay Chika 01/13/2018 01/13/2018 [facility] Outpatient [id number] DANNY VITAL 03/30/2018 [facility] Outpatient [id number] Danny Vital 03/30/2018 03/31/2018 [facility] Phone Message [id number] 03/31/2018 04/02/2018 [facility] Outpatient [id number] Luis Law 08/17/2018 08/18/2018 [facility] Outpatient [id number] Vanda Rashid 08/29/2018 08/30/2018 [facility] [id number] 09/01/2018 09/02/2018 [id number] [facility] Bedded Outpatient [id number] Luis Foy 09/02/2018 09/02/2018 [facility] Outpatient [id number] Vanda Rashid 09/27/2018 09/28/2018 [facility] [id number] Vanda Rashid 10/09/2018 10/10/2018 [facility] Outpatient [id number] Vanad Rashid 10/19/2018 10/20/2018 [facility] Outpatient [id number] Vanda Rashid 10/29/2018 10/29/2018 [facility] Emergency [id number] Alysha Alcanter 01/02/2019 01/03/2019 [facility] Outpatient [id number] Vanda Rashid 03/07/2019 03/08/2019 [facility] Outpatient [facility] [id number] Veronica Denton 04/02/2019 04/03/2019 [facility] Disease Okay Recurring [id number] Vanda Rashid 07/04/2019 08/03/2019 [facility] Procedures Procedure Code Date Perfomer Comments Source Colonoscopy<sup>1, 2</sup> [id number] 09/04/2017 repeat 09/15repeat 3 years [facility],[id number][facility] and [facility] Assessment and Plan Date Source Extracted from:Title: Clinical Document Author: Kari Farr MD Date: 01/14/18 Progress Note Gastroenterology and Hepatology Assessment/Impression: 1. Progressive jaundice in a patient with hepatitis C as well as prior alcohol abuse suggestive of decompensated liver cirrhosis. 2. History of chronic hepatitis C genotype 1A 3. History of prior alcohol abuse currently abstinent 4. Severe itching likely secondary to cholestatic jaundice, improving 5. Elevated AFP, no obvious mass on ultrasound or MRI. 6. Cannabis use for anxiety Plan: -I discussed the ultrasound and MRI findings with the patient. Despite suggestion of cholecystitis, he does not exhibit any clinical signs of acute cholecystitis. Most likely pericholecystic fluid is secondary to liver disease and low protein count. If he has any symptoms of worsening nausea or right upper quadrant pain or biliary colic consider nuclear medicine HIDA scan as an outpatient. -Complete workup for chronic liver diseases with serologies; will discuss results in office next week. -Consideration for referral to a transplant center if his jaundice does not improve. He has already stopped using alcohol. I have advised him to stop using marijuana as well. -Outpatient hepatitis C treatment for genotype 1A; we are waiting for insurance approval for this. Patient is stable for discharge planning from a GI standpoint. I have advised him to stop all the medications that he has been using for pruritus and avoid any hepatotoxic medications moving forward. Okay to use Benadryl as needed for itching. Once his liver tests improve will start him on treatment for hepatitis C. He has an appointment to see me on December and have advised him to keep that appointment. Plan discussed with attending physician Dr. Swann. SUBJECTIVE: Patient seen and examined. He notes significant improvement in itching as well as nausea. Denies any abdominal pain. His liver tests appear to be improving. His jaundice improving. His urine is less dark now. Review of Systems: (-)=Negative,(+)=Positive 1) Const: (-) fever, (-) weight change 2) Skin: (-) rash, (-) bleeding 3) HEENT: (-) difficulty swallowing, (-) swelling 4) Eyes: (-) vision changes, (-) bleeding 5) Neuro: (+) weakness, (-) headaches 6) Resp: (-) dyspnea on exertion, (-) cough 7) Cardio: (-) chest pain, (-) orthopnea 8) GI: (-) blood in stool, (-) reflux 9) : (-) dysuria, (-) bloody discharge 10) Endo: (-) heat intolerance, (-) cold intolerance OBJECTIVE: Vitals: See below General: NAD, conjunctival icterus Psych: alert , oriented x 3 Neck:supple CVS: s1s2 RRR Resp: CTA Bilaterally Abd : Soft, NT, ND , BS + Ext : No edema Skin: No rash or echymossis TRAFFIC COUNTER: No gross motor/sensory defect Radiology Studies: Reviewed. Labs: Reviewed. Vitals Tmp(F) Tmp(C) Ttype BP MAP Pulse RR SpO2 FIO2 ETCO2 01/14 11:21 98.7 37.06 oral 133/81 --- 71 18 99 --- --- 01/14 07:16 98.2 36.78 oral 134/86 --- 74 18 100 --- --- 01/14 04:15 98.3 36.83 oral 125/76 --- 81 18 99 --- --- 01/14 01:25 99.2 37.33 oral 116/72 --- 77 18 98 --- --- 01/13 20:23 98.5 36.94 oral 152/96 --- 85 18 99 --- --- 24 Hr Tmax: 99.2F (37.33c) at 01/14 01:25 Vital Signs are the last 5 in the past 48 hours. 24 Hr Tmin: 98.2F (36.78c) at 01/14 07:16 Weights are the last 5 in 60 days, plus initial. Date Wt(kg) Wt(lb) Ht(cm) Ht(in) Method BMI 01/13 78.18 172.00 165.10 65.00 Measured 28.7 01/12 (initial) 81.36 179.00 Estimated 29.9 01/12 165.10 65.00 Stated Most Recent Scores: 01/14/18 Pain Intensity NRS (0-10) 0 01/14/18 Sivakumar Coma Score 15 01/14/18 Kincaid Childs Fall Score 6 01/14/18 Rodger Score 20 Lines, Tubes, and Drains: 01/13/2018 04:34 Peripheral Lines: Forearm Left Over the needle catheter (no surgical procedures documented) I&O Record In Out Bal 01/14 24hr Tot 483 0 483 01/13 24hr Tot 730 0 730 24hr Labs 01/14 0535 U Amph Scr Negative U Sienna Scr Negative U Benzodia Scr Negative U Cannab Scr Positive U Cocaine Scr Negative U Opiate Scr Positive U Phencyc Scr Negative UDS Note See Note 01/14 0437 Sodium Lvl 139 Potassium Lvl 3.6 Chloride Lvl 105 CO2 26 AGAP 11.6 Glucose Lvl 100 H Creatinine Lvl 0.71 BUN 9 B/C Ratio 13 Total Protein 5.7 L Albumin Lvl 2.2 L Globulin 3.5 A/G Ratio 0.6 L Calcium Lvl 7.9 L ALT 59 AST 54 H Alk Phos 168 H Bili Total 7.6 H eGFR 103 Ferritin Lvl 1099 H Iron 61 % Satur Fe 34 TIBC 180 L UIBC 119 WBC 5.3 RBC 3.55 L Hgb 12.0 L Hct 34.3 L MCV 96.7 H MCH 33.7 H MCHC 34.8 RDW 17.0 H Platelet 157 MPV 9.1 Segs 65.3 Monocytes 10.4 Lymphocytes 21.3 Eosinophils 1.7 Basophils 1.3 H Segs-Bands # 3.5 Lymphocytes # 1.1 Monocytes # 0.5 Eosinophils # 0.1 Basophils # 0.1 A-1-AT 241 H Ceruloplasmin 33 01/13 1331 CMV IgM 0.2 EBV VCA IgM <0.2 01/13 0334 AFP TM 167.9 H Scheduled Meds (1): pantoprazole (Protonix) 40 mg PO Before Dinner [eMAR Schedule: (01/14/18) 16:30] [Future Dose: 01/15/18 16:30] Unscheduled Meds: None PRN Meds (7): diphenhydrAMINE (Benadryl) 25 mg PO TID hydrOXYzine 25 mg PO QID morphine Sulfate 6 mg PO Q4H ondansetron (Zofran) 4 mg IVP Q8H sodium chloride (Saline Flush 0.9%) 10 mL IVP PRN sodium chloride (Saline Flush 0.9%) 10 ml IVP PRN tramadol 50 mg PO Q6H One Time Meds (1): (Completed) fentaNYL 50 microgram IV ONCE Continuous Infusions (1): Sodium Chloride 0.9% IV 1,000 mL 1,000 mL 75 ml/hr Type of Bladder Control: Voluntary Type of Urinary Elimination: Continent Extracted from:Title: Clinical Document Author: Kari Farr MD Date: 01/13/18 Initial Consult Note Gastroenterology and Hepatology Reason for Consultation: Progressive jaundice Assessment/Impression: 1. Progressive jaundice in a patient with hepatitis C as well as prior alcohol abuse suggestive of decompensated liver cirrhosis. 2. History of chronic hepatitis C genotype 1A 3. History of prior alcohol abuse currently abstinent 4. Severe itching likely secondary to cholestatic jaundice, improving Plan: -Given acute worsening in bilirubin and mostly total and direct bilirubin; recommend ruling out any obstructive process by doing an MRI. Given elevation in tumor marker AFP in the office recommend an MRI with liver mass protocol at the same time.His AFP in my office last week was 178.6 -Complete workup for chronic liver diseases with serologies -If his liver function tests trending down and MRI is negative he can be discharged home from GI standpoint -Consideration for referral to a transplant center with worsening in his liver test -Outpatient hepatitis C treatment for genotype 1A; we are waiting for insurance approval for this. Thank you for asking us to part spent in the care of this patient. We will follow along and provide further recommendations. History Of Present Illness: This is a 57-year-old male who has been seeing me in the office for the last 3 months and has been getting progressively jaundiced, newly diagnosed hepatitis C confirmed cirrhosis based on fibrosis panel, genotype 1A with a RNA viral load of 886,000 in October 2017. His bilirubin has been steadily climbing which was 2.1 in October, subsequently increased to 3.3 on 01/05/2018 came to see me a week ago with severe complains of pruritus that was interfering with his activities of daily living. He was on various treatments including a DEXA injection at PCPs office, Gifty Welch, was given rifampin which he took 1 dose and started having nausea and therefore stopped, seen by a medical reception specialist Dr. Cardoso is given doxepin which states that has somewhat helped him. Meanwhile he started getting more and more jaundiced and came to the emergency room last night where he had repeat labs that showed bilirubin total of 13.8 with a direct of 11.2 ALT of 70 AST of 70. Hemoglobin was 11.9 platelet count 152 INR is 0.97. In addition to hepatitis C he has also been using alcohol up to 6 beers every day and after my initial office visit in October he completely stopped. His last drink was first week of October 2017. He had a CT scan last night through the ER with IV contrast that showed slightly prominent enhancement of gallbladder wall with suggestion of minimal pericholecystic fluid or inflammation. Mild thickening of the rectal wall noted. He had a colonoscopy in October which was negative. Right upper quadrant ultrasound was done that shows tiny calcification of the anterior gallbladder wall versus gallstone adherent to the gallbladder wall. No sonographic criteria of acute cholecystitis was noted. Intra-and extrahepatic ducts are not dilated with common bile duct measuring 6 mm. His current complaints include nausea mild itching no vomiting. He does not have any abdominal pain or discomfort. He states that his urine was very dark last night in the ER but has been gradually lightening up today. His bilirubin as well as ALT and AST are also improving. His mental status is stable he is alert oriented 3 with no evidence of confusion or encephalopathy. Past Medical History: HTN (hypertension) Hepatitis C antibody positive in blood Migraine Scheduled Meds (1): 01/13/18 pantoprazole (Protonix) 40 mg PO Before Dinner Continuous Infusions (1): 01/13/18 Sodium Chloride 0.9% IV 1,000 mL 1,000 mL 75 ml/hr Allergies (1) Active Reaction NKDA None documented Social History: Employment/School Details: Status: Employed. 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 Alcohol Details: Current, Type Beer. Frequency: 1-2 times per week. Exercise Details: Exercise type: Walking. Tobacco Details: Use: Current some day smoker. Type: Cigarettes. Household tobacco concerns: No. Tobacco smoke exposure: self. Did the Patient Smoke Cigarettes Anytime During the Last 365 Days? Yes. Cessation Counseling Provided? Yes. Substance Abuse Details: Use: None. Family History: Father: Heart attack; Type 2 diabetes mellitus Mother: Parkinson disease; Stroke Brother: [place] - Cancer of colon Sister: [place] - Breast cancer; Ovarian cancer. Procedure History: Colonoscopy: 09/04/17 Review of Systems: NEGATIVE unless bold General: weight loss, loss of appetite, fever, chills, excessive malaise, fatigue, generalized weakness HEENT : recent change in vison, eye pain, diplopia, epistaxis, sinus pain, sore throat, throat pain, acute hearing loss, ear pain or discharge RESPIRATORY: shortness of breath, hemoptysis, cough, wheezing, pleuritic pains CVS: chest pain, palpitations, irregular herat beat, low extremity swelling, heart murmurs GI: see HPI : hematuria, dysuria, incontinence,urinary frequency, impaired urine flow. recurrent UTIs MS: acute arthritis, back pain, joint swelling, gout Neurological: acute altered mentation, headaches, recent seizures, falls, recent loss of consciousness, gait problems, focal limb weakness, numbness, tingling , paraesthesia Endocrine: polydypsia, polyuria, unusual hair loss Immunological/ Hematological; acute bleeding, easy bleeding or bruising, lymph node swelling, recurrent infections Psychiatric: hallucinations. psychosis, confusion, depression, suicidal ideation Integument: rash, jaundice, generalized Vitals and Temp: Vitals Tmp(F) Pulse BP RR SpO2 FIO2 01/13 10:56 98.6 76 113/77 18 99 --- 01/13 07:06 98.4 66 132/89 18 100 --- 01/13 04:52 97.5 61 130/80 14 99 --- 01/13 04:27 98 62 114/74 14 99 --- 01/13 04:26 ---- --- ----- -- 95 --- 24 Hr Tmax: 98.7F (37.06c) at 01/12 20:54 Vital Signs are the last 5 in the past 48 hours. Examination: Vitals: See above General: NAD Psych: alert ; ortiented x 3 Neck:supple CVS: s1s2 RRR Resp: CTA Bilaterally Abd : Soft, NT, ND , BS + Ext : No edema Skin: multiple itch rashid and all extremities TRAFFIC COUNTER: No gross motor/sensory defect Labs: Labs (Last four charted values) WBC 5.4 (JAN 13) 5.6 (JAN 12) Hgb L 12.4 (JAN 13) L 11.9 (JAN 12) Hct L 35.5 (JAN 13) L 33.9 (JAN 12) Plt 156 (JAN 13) 152 (JAN 12) Na 137 (JAN 13) 138 (JAN 12) K L 3.4 (JAN 13) 3.7 (JAN 12) CO2 25 (JAN 13) 25 (JAN 12) Cl 102 (JAN 13) 105 (JAN 12) Cr 0.66 (JAN 13) 0.76 (JAN 12) BUN 13 (JAN 13) 16 (JAN 12) Glucose Random 86 (JAN 13) 92 (JAN 12) Mg 2.0 (JAN 13) Ca L 7.8 (JAN 13) L 8.1 (JAN 12) PT 12.9 (JAN 12) INR 0.97 (JAN 12) PTT 29.2 (JAN 12) Troponin <0.02 (JAN 12) CK MB H 3.7 (JAN 12) Total CK 191 (JAN 12) Diagnostic Studies: Reviewed. 01/14/2018 [facility] Plan of Care No Data Provided for This Section Social History Social History Date Source Social History TypeResponse Substance Abuse Use: None. Exercise Exercise type: Walking. Employment/School Status: Employed. 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 Alcohol Current, Type Beer. Frequency: 1-2 times per week. Smoking Status Current some day smoker; Type: Cigarettes; Concerns about tobacco use in household: No; Exposure to Tobacco Smoke self; Cigarette Smoking Last 365 Days Yes; Reg Smoking Cessation Counseling Yes entered on: 03/30/18 01/13/2018 [facility] Social History TypeResponse Substance Abuse Use: None. Exercise Exercise type: Walking. Employment/School Status: Employed. 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 Alcohol Current, Type Beer. Frequency: 1-2 times per week. Smoking Status Former smoker; Type: Cigarettes; Concerns about tobacco use in household: No; Exposure to Tobacco Smoke self; Cigarette Smoking Last 365 Days Yes; Reg Smoking Cessation Counseling Yes1 entered on: 03/07/19 1STOP SMOKING IN THE LAST 6MONTHS 01/13/2018 [facility] Social History TypeResponse Substance Abuse Use: None. Exercise Exercise type: Walking. Employment/School Status: Employed. 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 Alcohol Current, Type Beer. Frequency: 1-2 times per week. Smoking Status Former smoker; Type: Cigarettes; Concerns about tobacco use in household: No; Exposure to Tobacco Smoke self; Cigarette Smoking Last 365 Days Yes; Reg Smoking Cessation Counseling Yes1 entered on: 03/07/19 1STOP SMOKING IN THE LAST 6MONTHS 01/13/2018 [id number] Social History TypeResponse Alcohol Current, Type Beer. Frequency: 1-2 times per week. Employment/School Status: Employed. 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 Exercise Exercise type: Walking. Substance Abuse Use: None. Smoking Status Former smoker; Type: Cigarettes; Concerns about tobacco use in household: No; Exposure to Tobacco Smoke self; Cigarette Smoking Last 365 Days Yes; Reg Smoking Cessation Counseling Yes1 entered on: 07/04/19 1STOP SMOKING IN THE LAST 6MONTHS 01/13/2018 [facility] Social History TypeResponse Alcohol Current, Type Beer. Frequency: 1-2 times per week. Employment/School Status: Employed. 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 Exercise Exercise type: Walking. Substance Abuse Use: None. Smoking Status Former smoker; Type: Cigarettes; Concerns about tobacco use in household: No; Exposure to Tobacco Smoke self; Cigarette Smoking Last 365 Days Yes; Reg Smoking Cessation Counseling Yes1 entered on: 07/04/19 1STOP SMOKING IN THE LAST 6MONTHS 01/13/2018 [facility] Family History No Data Provided for This Section Advance Directives No Data Provided for This Section Functional Status No Data Provided for This Section
--- OUTSIDE RECORDS SUMMARY | 2019-08-26 05:47 | XMS REPORT | Summary of Care ---
Author Author [facility] Organization [facility] Address Unknown Phone Unavailable Encounter IVETT Mckeon(ARNOLD) [id number] Date(s): 11/06/17 - 11/06/17 [facility] [address], [address] [place], [place] [id number]- [phone] Discharge Disposition: Home or Self Care Attending Physician: Missy Thomas MD Vital Signs Most recent to 1 oldest [Reference Range]: Height 167.64 cm (11/06/17 4:19 PM) Temperature Oral 97.5 DegF [96.4-99.1 DegF] (11/06/17 4:19 PM) Blood Pressure 133/89 mmHg [90-140/60-90 mmHg] (11/06/17 4:19 PM) Respiratory Rate 14 BRMIN [14-20 BRMIN] (11/06/17 4:19 PM) Peripheral Pulse 60 bpm Rate [60-100 bpm] (11/06/17 4:19 PM) Weight 81.477 kg (11/06/17 4:19 PM) Body Mass Index 28.99 m2 (11/06/17 4:19 PM) Problem List Condition Effective Dates Status Health Status Informant Migraine(Confirmed) Resolved Hepatitis C antibody Resolved positive in blood(Confirmed) HTN Resolved (hypertension)(Confi rmed) Hypertension(Confirm Active ed) Elevated liver Active enzymes(Confirmed) Body mass index Active (BMI) 28.0-28.9, adult(Confirmed) Hepatitis Active C(Confirmed) Allergies, Adverse Reactions, Alerts Substance Reaction Severity Status NKDA Active Medications hydrOXYzine hydrochloride 50 mg oral tablet 50 mg=1 tab, PO, TID, PRN itching, # 30 tab, 0 Refill(s), Pharmacy: [id number] Start Date: 11/06/17 Stop Date: 12/9/18 Status: Ordered metoprolol tartrate 100 mg oral tablet 100 mg=1 tab, PO, BID, 0 Refill(s) Start Date: 11/06/17 Stop Date: 11/06/17 Status: Discontinued triamcinolone ACETONIDE 40 mg/mL injectable suspension 40 mg, Route: IM, ONCE, Dosing Weight 81.477, kg, (KENALOG), Start date: 7 16:46:00 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 Employment/School Status: Employed. 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 Alcohol Current, Type Beer. Frequency: 1-2 times per week. Smoking Status Current some day smoker; Type: Cigarettes; Concerns about tobacco use in household: No; Exposure to Tobacco Smoke self; Cigarette Smoking Last 365 Days Yes; Reg Smoking Cessation Counseling Yes Assessment and Plan No data available for this section
--- OUTSIDE RECORDS SUMMARY | 2019-08-26 05:47 | XMS REPORT | Summary of Care ---
Author Author [facility] Organization [facility] Address Unknown Phone Unavailable Encounter IVETT Mckeon(ARNOLD) [id number] Date(s): 09/04/17 - 09/04/17 [facility] [address] [place] [address]- Discharge Disposition: Home or Self Care Attending Physician: Kari Farr MD Referring Physician: Kari Farr MD Vital Signs 1 2 3 Most recent to oldest [Reference Range]: 160.02 cm (08/28/17 1:46 PM) Height 95/66 mmHg (09/04/17 7:57 AM) 95/68 mmHg (09/04/17 7:40 AM) 101/85 mmHg (09/04/17 7:25 AM) Blood Pressure [90-140/60-90 mmHg] 18 BRMIN (09/04/17 7:57 AM) 15 BRMIN (09/04/17 7:40 AM) 14 BRMIN (09/04/17 7:25 AM) Respiratory Rate [14-20 BRMIN] 75 kg (08/28/17 1:46 PM) Weight 29.29 m2 (08/28/17 1:46 PM) Body Mass Index Problem List Condition Effective Dates Status Health Status Informant Migraine(Confirmed) Resolved Hepatitis C antibody Resolved positive in blood(Confirmed) HTN Resolved (hypertension)(Confi rmed) Hypertension(Confirm Active ed) Elevated liver Active enzymes(Confirmed) Body mass index Active (BMI) 28.0-28.9, adult(Confirmed) Hepatitis Active C(Confirmed) Allergies, Adverse Reactions, Alerts Substance Reaction Severity Status NKDA Active Medications Sodium Chloride 0.9% IV 1000 mL 1,000 mL, Rate: 25 ml/hr, Infuse over: 40 hr, Route: IV, Dosing Weight 75 kg, To tate Volume: 1,000, Start date: 09/04/17 6:58:00 CDT, Duration: 30 day, Stop date : 10/04/17 6:57:00 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 Employment/School Status: Employed. 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 Alcohol Current, Type Beer. Frequency: 1-2 times per week. Smoking Status Light tobacco smoker; Type: Cigarettes; Concerns about tobacco use in household: No; Exposure to Tobacco Smoke None; Cigarette Smoking Last 365 Days Yes; Reg Smoking Cessation Counseling Yes Assessment and Plan No data available for this section
--- OUTSIDE RECORDS SUMMARY | 2019-08-26 05:47 | XMS REPORT | Summary of Care ---
Author Author [facility] Organization [facility] Address Unknown Phone Unavailable Encounter HQ Eddyntr_aliayah(FIN) [id number] Date(s): 12/08/17 - 12/09/17 [facility] [address], [address] [place] [address]- [phone] Vital Signs No data available for this section Problem List Condition Effective Dates Status Health Status Informant Migraine(Confirmed) Resolved Hepatitis C antibody Resolved positive in blood(Confirmed) HTN Resolved (hypertension)(Confi rmed) Hypertension(Confirm Active ed) Elevated liver Active enzymes(Confirmed) Body mass index Active (BMI) 28.0-28.9, adult(Confirmed) Hepatitis Active C(Confirmed) Allergies, Adverse Reactions, Alerts Substance Reaction Severity Status NKDA Active Medications predniSONE 50 mg oral tablet 50 mg=1 tab, PO, Daily, with food or milk, X 7 day, # 7 tab, 1 Refill(s), [facility] cy: [facility] [id number] Start Date: 12/08/17 Stop Date: 12/22/17 Status: Ordered Results No data available for this section Immunizations No data available for this section Procedures Procedure Date Related Diagnosis Body Site Status Colonoscopy1, 2 09/04/17 Completed 1repeat 09/15 2repeat 3 years Social History Social History Type Response Exercise Exercise type: Walking. Employment/School Status: Employed. 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 Alcohol Current, Type Beer. Frequency: 1-2 times per week. Smoking Status Current some day smoker; Type: Cigarettes; Concerns about tobacco use in household: No; Exposure to Tobacco Smoke self; Cigarette Smoking Last 365 Days Yes; Reg Smoking Cessation Counseling Yes entered on: 11/06/17 Assessment and Plan No data available for this section
--- OUTSIDE RECORDS SUMMARY | 2019-08-26 05:47 | XMS REPORT | Summary of Care ---
Author Author [facility] Organization [facility] Address Unknown Phone Unavailable Encounter HQ Linda(FIN) [id number] Date(s): 01/13/18 - 01/13/18 [facility] [address] [place] [address]- Attending Physician: Kari Farr MD Admitting Physician: Kari Farr MD Referring Physician: Kari Farr MD Vital Signs No data available for this section Problem List Condition Effective Dates Status Health Status Informant Anemia(Confirmed) Active Elevated Active bilirubin(Confirmed) Cirrhosis(Confirmed) Active Migraine(Confirmed) Resolved Hepatitis C antibody Resolved positive in blood(Confirmed) HTN Resolved (hypertension)(Confi rmed) Hypertension(Confirm Active ed) Elevated liver Active enzymes(Confirmed) Low back Active pain(Confirmed) Nausea & Active vomiting(Confirmed) Dark Active urine(Confirmed) Hepatitis Active C(Confirmed) Weight Active loss(Confirmed) Allergies, Adverse Reactions, Alerts Substance Reaction Severity Status NKDA Active Medications No data available for this section [...] Walking. Employment/School Status: Employed. 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 Alcohol Current, Type Beer. Frequency: 1-2 times per week. Smoking Status Current some day smoker; Type: Cigarettes; Concerns about tobacco use in household: No; Exposure to Tobacco Smoke self; Cigarette Smoking Last 365 Days Yes; Reg Smoking Cessation Counseling Yes entered on: 03/30/18 Assessment and Plan No data available for this section
--- OUTSIDE RECORDS SUMMARY | 2019-08-26 05:47 | XMS REPORT | Summary of Care ---
Author Author [facility] Organization [facility] Address Unknown Phone Unavailable Encounter HQ Bere_dary(FIN) [id number] Date(s): 11/19/17 - 11/20/17 [facility] [address], [address] [id number]- [phone] Vital Signs No data available for this section Problem List Condition Effective Dates Status Health Status Informant Migraine(Confirmed) Resolved Hepatitis C antibody Resolved positive in blood(Confirmed) HTN Resolved (hypertension)(Confi rmed) Hypertension(Confirm Active ed) Elevated liver Active enzymes(Confirmed) Body mass index Active (BMI) 28.0-28.9, adult(Confirmed) Hepatitis Active C(Confirmed) Allergies, Adverse Reactions, Alerts Substance Reaction Severity Status NKDA Active Medications cholestyramine 4 g/5.5 g oral powder for reconstitution 4 gm, PO, Daily, # 30 unit, 1 Refill(s), Pharmacy: [facility] [id number] Start Date: 11/19/17 Stop Date: 11/19/17 Status: Completed cholestyramine 4 g/9 g oral powder See Instructions, # 90 pkg, TAKE 4MG BY MOUTH DAILY FOR 30 DAYS, Pharmacy: [facility] [id number] Start Date: 11/19/17 Status: Ordered Results No data available for this section Immunizations No data available for this section Procedures Procedure Date Related Diagnosis Body Site Colonoscopy1, 2 09/04/17 1repeat 09/15 2repeat 3 years Social History Social History Type Response Exercise Exercise type: Walking. Employment/School Status: Employed. 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 Alcohol Current, Type Beer. Frequency: 1-2 times per week. Smoking Status Current some day smoker; Type: Cigarettes; Concerns about tobacco use in household: No; Exposure to Tobacco Smoke self; Cigarette Smoking Last 365 Days Yes; Reg Smoking Cessation Counseling Yes Assessment and Plan No data available for this section
--- OUTSIDE RECORDS SUMMARY | 2019-08-26 05:47 | XMS REPORT | Summary of Care ---
Author Author [facility] Organization [facility] Address Unknown Phone Unavailable Encounter HQ Bere_dary(FIN) [id number] Date(s): 04/02/19 - 04/02/19 [facility] [address] [place] [address] [phone] Discharge Disposition: Home or Self Care Attending Physician: Veronica Figueredo Referring Physician: Veronica Figueredo MSN Vital Signs No data available for this [...] type: Walking. Employment/School Status: Employed. 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 Alcohol Current, Type Beer. Frequency: 1-2 [...]
--- OUTSIDE RECORDS SUMMARY | 2019-08-26 05:48 | XMS REPORT | Summary of Care ---
Author Author [facility] Organization [facility] Address Unknown Phone Unavailable Encounter HQ Bere_dary(FIN) [id number] Date(s): 12/08/17 - 12/09/17 [facility] [address], [address] [place], [place] [id number]- [phone] Vital Signs No data available for this [...] # 7 tab, 1 Refill(s), [facility]: [id number] Start Date: 12/08/17 Stop Date: 12/22/17 Status: Completed Results No data available for this section Immunizations Not Given Vaccine Date Status Refusal Reason influenza virus vaccine, inactivated 01/13/18 Not Given Patient Refuses Procedures Procedure Date Related Diagnosis Body Site Status Colonoscopy1, 2 09/04/17 Completed 1repeat 09/15 2repeat 3 years Social History Social History Type Response Substance Abuse Use: None. Exercise Exercise type: Walking. Employment/School Status: Employed. 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 Alcohol Current, Type Beer. Frequency: 1-2 times per week. Smoking Status Current some day smoker; Type: Cigarettes; Concerns about tobacco use in household: No; Exposure to Tobacco Smoke self; Cigarette Smoking Last 365 Days Yes; Reg Smoking Cessation Counseling Yes entered on: 01/13/18 Assessment and Plan No data available for this section
--- OUTSIDE RECORDS SUMMARY | 2019-08-26 05:48 | XMS REPORT | Summary of Care ---
Author Author [facility] Organization [facility] Address Unknown Phone Unavailable Encounter HQ Alvinr_dary(FIN) [id number] Date(s): 03/31/18 - 04/01/18 [facility] [address], [address] [place], [place] [address]- [phone] Vital Signs No data available for this [...] type: Walking. Employment/School Status: Employed. 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 Alcohol Current, Type Beer. Frequency: 1-2 times per week. Smoking Status Current some day smoker; Type: Cigarettes; Concerns about tobacco use in household: No; Exposure to Tobacco Smoke self; Cigarette Smoking Last 365 Days Yes; Reg Smoking Cessation Counseling Yes entered on: 03/30/18 Assessment and Plan No data available for this section
--- OUTSIDE RECORDS SUMMARY | 2019-08-26 05:48 | XMS REPORT | Summary of Care ---
Author Author [facility] Organization [facility] Address Unknown Phone Unavailable Encounter IVETT Mckeon(ARNOLD) [id number] Date(s): 07/04/19 - 08/02/19 [facility] [address] [place] [phone] Discharge Disposition: Home or Self Care Attending Physician: Vanda Rashid NP Referring Physician: Vanda Rashid NP Vital Signs Most recent to 1 oldest [Reference Range]: Height 167.64 cm (07/04/19 11:45 AM) Blood Pressure 143/96 mmHg [90-140/60-90 mmHg] *HI* (07/04/19 11:45 AM) Peripheral Pulse 68 bpm Rate [60-100 bpm] (07/04/19 11:45 AM) Weight 75.909 kg (07/04/19 11:45 AM) Body Mass Index 27.01 m2 (07/04/19 11:45 AM) Problem List Condition Effective Dates Status Health Status Informant Anemia(Confirmed) Active Cirrhosis(Confirmed) Active Esophageal Active varices(Confirmed) Migraine(Confirmed) Resolved Hypertension(Confirm Active ed) HTN Resolved (hypertension)(Confi rmed) Jaundice(Confirmed) Resolved Elevated liver Active enzymes(Confirmed) Liver Active mass(Confirmed) Low back Active pain(Confirmed) Nausea & Resolved vomiting(Confirmed) Class 1 Active obesity(Confirmed) Colon Resolved polyps(Confirmed) Hepatitis Active C(Confirmed) Weight Active loss(Confirmed) Allergies, Adverse Reactions, Alerts No Known Medication Allergies Medications lactulose 10 g/15 mL oral syrup 20 gm=30 mL, PO, Daily, PRN constipation, X 30 day, # 900 mL, 5 Refill(s), Pharm acy: [facility] #[id number] Start Date: 07/04/19 Stop Date: 12/31/19 Status: Ordered nadolol 40 mg oral tablet 40 mg=1 tab, PO, Daily, take at night, # 30 tab, 5 Refill(s), Pharmacy: [facility] #[id number] Start Date: 07/04/19 Stop Date: 12/31/19 Status: Ordered Results No data available for this section Immunizations Not Given Vaccine Date Status Refusal Reason influenza virus vaccine, inactivated 01/13/18 Not Given Patient Refuses Procedures Procedure Date Related Diagnosis Body Site Status Colonoscopy1, 2 09/04/17 Completed 1repeat 09/15 2repeat 3 years Social History Social History Type Response Alcohol Current, Type Beer. Frequency: 1-2 times per week. Employment/School Status: Employed. 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 Exercise Exercise type: Walking. Substance Abuse Use: None. Smoking Status Former smoker; Type: Cigarettes; Concerns about tobacco use in household: No; Exposure to Tobacco Smoke self; Cigarette Smoking Last 365 Days Yes; Reg Smoking Cessation Counseling Yes1 entered on: 07/04/19 1STOP SMOKING IN THE LAST 6MONTHS Assessment and Plan No data available for this section
--- OUTSIDE RECORDS SUMMARY | 2019-08-26 05:48 | XMS REPORT | Summary of Care ---
Author Author [facility] Organization [facility] Address Unknown Phone Unavailable Encounter IVETT Mckeon(ARNOLD) [id number] Date(s): 01/12/18 - 01/14/18 [facility] [address] [place] [address]- [phone] Encounter Diagnosis Other cirrhosis of liver (Final) - 01/19/18 Unspecified jaundice (Final) - Chronic viral hepatitis C (Final) - Essential (primary) hypertension (Final) - Other pruritus (Final) - Alcohol abuse, in remission (Final) - Opioid use, unspecified, uncomplicated (Final) - Nicotine dependence, cigarettes, uncomplicated (Final) - Cannabis abuse, uncomplicated (Final) - Discharge Disposition: Home or Self Care Attending Physician: Ze Swann MD Admitting Physician: Ze Swann MD Vital Signs 1 2 3 Most recent to oldest [Reference Range]: 165.1 cm (01/13/18 4:29 AM) 165.1 cm (01/12/18 8:54 PM) Height 99.6 DegF *HI* (01/14/18 4:11 PM) 98.7 DegF (01/14/18 11:21 AM) 98.2 DegF (01/14/18 7:16 AM) Temperature Oral [96.4-99.1 DegF] 134/83 mmHg (01/14/18 4:11 PM) 133/81 mmHg (01/14/18 11:21 AM) 134/86 mmHg (01/14/18 7:16 AM) Blood Pressure [90-140/60-90 mmHg] 18 BRMIN (01/14/18 4:11 PM) 18 BRMIN (01/14/18 11:21 AM) 18 BRMIN (01/14/18 7:16 AM) Respiratory Rate [14-20 BRMIN] 75 bpm (01/14/18 4:11 PM) 71 bpm (01/14/18 11:21 AM) 74 bpm (01/14/18 7:16 AM) Peripheral Pulse Rate [60-100 bpm] 78.182 kg (01/13/18 4:29 AM) 81.364 kg (01/12/18 8:54 PM) Weight 28.68 m2 (01/13/18 4:29 AM) 29.85 m2 (01/12/18 8:54 PM) Body Mass Index Problem List Condition [...] Substance Reaction Severity Status NKDA Active Medications Benadryl 25 mg, Route: IVP, ONCE, Dosing Weight 81.364, kg, Priority: STAT, Start date: 0 01/12/18 23:47:00 IMPREGNATOR OPERATOR, Stop date: 01/12/18 23:47:00 IMPREGNATOR OPERATOR Start Date: 01/12/18 Stop Date: 01/13/18 Status: Completed Benadryl 25 mg, 1 tab, Route: PO, Drug form: TAB, TID, Dosing Weight 78.182, kg, PRN as n eeded for itching, Start date: 01/13/18 11:48:00 IMPREGNATOR OPERATOR, Duration: 30 day, Stop emperatriz e: 02/12/18 11:47:00 CDT Start Date: 01/13/18 Stop Date: 01/14/18 Status: Discontinued diphenhydrAMINE 25 mg, 0.5 mL, Route: IVP, Drug form: INJ, ONCE, Dosing Weight 81.364, kg, Prior ity: STAT, Start date: 01/12/18 22:21:00 IMPREGNATOR OPERATOR, Stop date: 01/12/18 22:21:00 IMPREGNATOR OPERATOR Notes: (Same as: Benadryl) Start Date: 01/12/18 Stop Date: 01/12/18 Status: Completed doxepin 25 mg oral capsule 25 mg=1 cap, PO, Bedtime, # 30 cap, 0 Refill(s) Start Date: 01/13/18 Stop Date: 01/14/18 Status: Discontinued fentaNYL 50 microgram, Route: IV, ONCE, Dosing Weight 81.364, kg, Start date: 01/13/18 4: 03:00 IMPREGNATOR OPERATOR, Stop date: 01/13/18 4:03:00 IMPREGNATOR OPERATOR Start Date: 01/13/18 Stop Date: 01/13/18 Status: Completed fentaNYL 50 microgram, 1 mL, Route: IVP, Drug form: INJ, ONCE, Dosing Weight 81.364, kg, Priority: STAT, Start date: 01/12/18 22:21:00 IMPREGNATOR OPERATOR, Stop date: 01/12/18 22:21:00 IMPREGNATOR OPERATOR Notes: (Same as: Sublimaze) Preservative free. Start Date: 01/12/18 Stop Date: 01/12/18 Status: Completed gabapentin 600 mg oral tablet 600 mg=1 tab, PO, Bedtime, 0 Refill(s) Start Date: 01/13/18 Stop Date: 01/14/18 Status: Discontinued hydrOXYzine 25 mg, 1 cap, Route: PO, Drug form: CAP, QID, Dosing Weight 78.182, kg, PRN Itch ing, Start date: 01/13/18 16:14:00 IMPREGNATOR OPERATOR, Duration: 30 day, Stop date: 02/12/18 16 :13:00 CDT Notes: (Same as: Vistaril) Start Date: 01/13/18 Stop Date: 01/14/18 Status: Discontinued influenza virus vaccine, inactivated 0.5 mL, Route: IM, Drug Form: SUSP, Daily, Start date: 01/13/18 9:00:00 IMPREGNATOR OPERATOR, Dur ation: 1 doses or times, Stop date: 01/13/18 9:00:00 IMPREGNATOR OPERATOR Notes: (Same as: Fluzone Quadrivalent, Fluarix Quadrivalent)For 3 years of age a nd older (0.5 mL IM)Shake well before use Start Date: 01/13/18 Stop Date: 01/13/18 Status: Completed morphine Sulfate 6 mg, 3 mL, Route: PO, Drug form: SOLN, Q4H, Dosing Weight 81.364, kg, PRN Pain Score 7-10, Start date: 01/13/18 0:39:00 IMPREGNATOR OPERATOR, Duration: 30 day, Stop date: 02/12 0:38:00 CDT Notes: (Same as:MORPhine Sulfate) Start Date: 01/13/18 Stop Date: 01/14/18 Status: Discontinued ondansetron 4 mg, 2 mL, Route: IVP, Drug form: INJ, Q6H, Dosing Weight 81.364, kg, PRN Nause a & Vomiting, Start date: 01/13/18 0:39:00 IMPREGNATOR OPERATOR, Duration: 30 day, Stop date: 02/12/18 0:38:00 CDT Notes: (Same as: Yemian) MEDICATION WASTE Product Size: 4 mgProduct Was sharon: ___ mg Start Date: 01/13/18 Stop Date: 01/13/18 Status: Discontinued Protonix 40 mg, 1 tab, Route: PO, Drug form: ECTAB, Before Dinner, Dosing Weight 78.182, kg, Start date: 01/13/18 16:30:00 IMPREGNATOR OPERATOR, Duration: 30 day, Stop date: 02/11/18 16: 30:00 CDT Notes: Tablet should not be chewed or crushed.(Same as: Protonix) Start Date: 01/13/18 Stop Date: 01/14/18 Status: Discontinued rifaMPIN 300 mg oral capsule 600 mg=2 cap, PO, Bedtime, 0 Refill(s) Start Date: 01/13/18 Stop Date: 01/14/18 Status: Discontinued Saline Flush 0.9% 10 mL, Route: IVP, Drug Form: INJ, Dosing Weight 81.364, kg, PRN, PRN Line Flush , Start date: 01/12/18 20:59:00 IMPREGNATOR OPERATOR, Duration: 30 day, Stop date: 02/11/18 21:58 :00 CDT Notes: (Same as: BD Posiflush) Start Date: 01/12/18 Stop Date: 01/14/18 Status: Discontinued Saline Flush 0.9% 10 ml, Route: IVP, Drug Form: INJ, Dosing Weight 81.364, kg, PRN, PRN Line Flush , Start date: 01/13/18 0:39:00 IMPREGNATOR OPERATOR, Duration: 30 day, Stop date: 02/12/18 1:38:0 0 CDT Notes: (Same as: BD Posiflush) Start Date: 01/13/18 Stop Date: 01/14/18 Status: Discontinued Sodium Chloride 0.9% IV 1,000 mL 1,000 mL, Rate: 75 ml/hr, Infuse over: 13.3 hr, Route: IV, Dosing Weight 81.364 kg, Total Volume: 1,000, Start date: 01/13/18 0:39:00 IMPREGNATOR OPERATOR, Duration: 30 day, Sto p date: 02/12/18 0:38:00 CDT, 1.95, m2 Start Date: 01/13/18 Stop Date: 01/14/18 Status: Discontinued Sodium Chloride 0.9% IV 1,000 mL 1,000 mL, Rate: 75 ml/hr, Infuse over: 13.3 hr, Route: IV, Dosing Weight 81.364 kg, Total Volume: 1,000, Priority: STAT, Start date: 01/12/18 22:21:00 IMPREGNATOR OPERATOR, Dura tion: 1 doses or times, Stop date: 01/13/18 11:38:00 IMPREGNATOR OPERATOR, 1.95, m2 Start Date: 01/12/18 Stop Date: 01/12/18 Status: Completed tramadol 50 mg, 1 tab, Route: PO, Drug form: TAB, Q6H, Dosing Weight 78.182, kg, PRN Pain Score 1-3, Start date: 01/13/18 11:14:00 IMPREGNATOR OPERATOR, Duration: 30 day, Stop date: 01/28 05/17 11:13:00 CDT Notes: Not to exceed 400mg/day. (Same As: Ultram) Start Date: 01/13/18 Stop Date: 01/14/18 Status: Discontinued Zofran 4 mg, 2 mL, Route: IVP, Drug form: INJ, Q8H, Dosing Weight 78.182, kg, PRN Nause a, Start date: 01/13/18 11:14:00 IMPREGNATOR OPERATOR, Duration: 30 day, Stop date: 02/12/18 11:1 3:00 CDT Notes: (Same as: Zofran) MEDICATION WASTE Product Size: 4 mgProduct Was sharon: ___ mg Start Date: 01/13/18 Stop Date: 01/14/18 Status: Discontinued Results ELECTROLYTES 1 2 3 Most recent to oldest [Reference Range]: 139 mEq/L (01/14/18 4:37 AM) 137 mEq/L (01/13/18 3:34 AM) 138 mEq/L (01/12/18 10:45 PM) Sodium Lvl [135-145 mEq/L] 3.6 mEq/L (01/14/18 4:37 AM) 3.4 mEq/L *LOW* (01/13/18 3:34 AM) 3.7 mEq/L (01/12/18 10:45 PM) Potassium Lvl [3.5-5.1 mEq/L] 105 mEq/L (01/14/18 4:37 AM) 102 mEq/L (01/13/18 3:34 AM) 105 mEq/L (01/12/18 10:45 PM) Chloride Lvl [95-109 mEq/L] 26 mEq/L (01/14/18 4:37 AM) 25 mEq/L (01/13/18 3:34 AM) 25 mEq/L (01/12/18 10:45 PM) CO2 [24-32 mEq/L] 11.6 mEq/L (01/14/18 4:37 AM) 13.4 mEq/L (01/13/18 3:34 AM) 11.7 mEq/L (01/12/18 10:45 PM) AGAP [10.0-20.0 mEq/L] CHEM PANEL 1 2 3 Most recent to oldest [Reference Range]: 0.71 mg/dL (01/14/18 4:37 AM) 0.66 mg/dL (01/13/18 3:34 AM) 0.76 mg/dL (01/12/18 10:45 PM) Creatinine Lvl [0.50-1.40 mg/dL] 103 mL/min/1.73m2 1 *NA* (01/14/18 4:37 AM) 106 mL/min/1.73m2 2 *NA* (01/13/18 3:34 AM) 100 mL/min/1.73m2 3 *NA* (01/12/18 10:45 PM) eGFR 9 mg/dL (01/14/18 4:37 AM) 13 mg/dL (01/13/18 3:34 AM) 16 mg/dL (01/12/18 10:45 PM) BUN [7-22 mg/dL] 13 (01/14/18 4:37 AM) 20 (01/13/18 3:34 AM) 21 (01/12/18 10:45 PM) B/C Ratio [6-25] 100 mg/dL *HI* (01/14/18 4:37 AM) 86 mg/dL (01/13/18 3:34 AM) 92 mg/dL (01/12/18 10:45 PM) Glucose Lvl [70-99 mg/dL] 5.7 g/dL *LOW* (01/14/18 4:37 AM) 5.6 g/dL *LOW* (01/13/18 3:34 AM) 5.7 g/dL *LOW* (01/12/18 10:45 PM) Total Protein [6.4-8.4 g/dL] 2.2 g/dL *LOW* (01/14/18 4:37 AM) 2.1 g/dL *LOW* (01/13/18 3:34 AM) 2.3 g/dL *LOW* (01/12/18 10:45 PM) Albumin Lvl [3.5-5.0 g/dL] 3.5 g/dL (01/14/18 4:37 AM) 3.5 g/dL (01/13/18 3:34 AM) 3.4 g/dL (01/12/18 10:45 PM) Globulin [2.7-4.2 g/dL] 0.6 *LOW* (01/14/18 4:37 AM) 0.6 *LOW* (01/13/18 3:34 AM) 0.7 (01/12/18 10:45 PM) A/G Ratio [0.7-1.6] 7.9 mg/dL *LOW* (01/14/18 4:37 AM) 7.8 mg/dL *LOW* (01/13/18 3:34 AM) 8.1 mg/dL *LOW* (01/12/18 10:45 PM) Calcium Lvl [8.5-10.5 mg/dL] 2.0 mg/dL (01/13/18 3:34 AM) Magnesium Lvl [1.8-2.4 mg/dL] 59 unit/L (01/14/18 4:37 AM) 68 unit/L *HI* (01/13/18 3:34 AM) 70 unit/L *HI* (01/12/18 10:45 PM) ALT [0-65 unit/L] 54 unit/L *HI* (01/14/18 4:37 AM) 63 unit/L *HI* (01/13/18 3:34 AM) 70 unit/L *HI* (01/12/18 10:45 PM) AST [0-37 unit/L] 168 unit/L *HI* (01/14/18 4:37 AM) 188 unit/L *HI* (01/13/18 3:34 AM) 179 unit/L *HI* (01/12/18 10:45 PM) Alk Phos [39-136 unit/L] 7.6 mg/dL *HI* (01/14/18 4:37 AM) 12.9 mg/dL *HI* (01/13/18 3:34 AM) 13.8 mg/dL *HI* (01/12/18 10:45 PM) Bili Total [0.2-1.3 mg/dL] 11.2 mg/dL *HI* (01/12/18 10:45 PM) Bili Direct [0.0-0.3 mg/dL] 32.0 uMol/L (01/13/18 1:31 PM) Ammonia [<=45.0 uMol/L] 1Result Comment: The eGFR is calculated using the [...] from the National Kidney Disease Education Program ( NKDEP) which additionally recommends that when the eGFR is used in patients with extremes of body mass index for purposes of drug dosing, the eGFR should be mul tiplied by the estimated BMI. 2Result Comment: The eGFR is calculated using the [...] from the National Kidney Disease Education Program ( NKDEP) which additionally recommends that when the eGFR is used in patients with extremes of body mass index for purposes of drug dosing, the eGFR should be mul tiplied by the estimated BMI. 3Result Comment: The eGFR is calculated using the [...] from the National Kidney Disease Education Program ( NKDEP) which additionally recommends that when the eGFR is used in patients with extremes of body mass index for purposes of drug dosing, the eGFR should be mul tiplied by the estimated BMI. CARDIAC ENZYMES 1 2 3 Most recent to oldest [Reference Range]: 191 unit/L (01/12/18 10:45 PM) Total CK [12-191 unit/L] 3.7 ng/mL *HI* (01/12/18 10:45 PM) CK MB [0.5-3.6 ng/mL] 1.9 (01/12/18 10:45 PM) CK MB Index [0.0-2.5] <0.02 ng/mL (01/12/18 10:45 PM) Troponin-I [0.00-0.40 ng/mL] ANEMIA STUDY 1 2 3 Most recent to oldest [Reference Range]: 61 ug/dl (01/14/18 4:37 AM) Iron [45-160 ug/dl] 1099 ng/mL *HI* (01/14/18 4:37 AM) Ferritin Lvl [22-275 ng/mL] 34 % (01/14/18 4:37 AM) % Satur Fe [12-57 %] 119 ug/dl (01/14/18 4:37 AM) UIBC [110-370 ug/dl] 180 ug/dl *LOW* (01/14/18 4:37 AM) TIBC [228-428 ug/dl] DRUG SCREEN 1 2 3 Most recent to oldest [Reference Range]: Negative *NA* (01/14/18 5:35 AM) U Amph Scr [Negative] Negative *NA* (01/14/18 5:35 AM) U Sienna Scr [Negative] Negative *NA* (01/14/18 5:35 AM) U Benzodia Scr [Negative] Negative *NA* (01/14/18 5:35 AM) U Cocaine Scr [Negative] Positive *ABN* (01/14/18 5:35 AM) U Opiate Scr [Negative] Negative *NA* (01/14/18 5:35 AM) U Phencyc Scr [Negative] Positive *ABN* (01/14/18 5:35 AM) U Cannab Scr [Negative] See Note (01/14/18 5:35 AM) UDS Note URINE AND STOOL 1 2 3 Most recent to oldest [Reference Range]: Clear (01/13/18 3:34 AM) UA Turbidity [Clear] Tiffany *NA* (01/13/18 3:34 AM) UA Color 6.0 (01/13/18 3:34 AM) UA pH [5.0-8.0] 1.033 *HI* (01/13/18 3:34 AM) UA Spec Grav [<=1.030] Negative mg/dL *NA* (01/13/18 3:34 AM) UA Glucose [Negative mg/dL] Negative (01/13/18 3:34 AM) UA Blood [Negative] Trace mg/dL *ABN* (01/13/18 3:34 AM) UA Ketones [Negative mg/dL] 30 mg/dL *ABN* (01/13/18 3:34 AM) UA Protein [Negative mg/dL] 4.0 mg/dL *HI* (01/13/18 3:34 AM) UA Urobilinogen [0.1-1.0 mg/dL] Negative *NA* (01/13/18 3:34 AM) UA Bili [Negative] Negative (01/13/18 3:34 AM) UA Leuk Est [Negative] Negative (01/13/18 3:34 AM) UA Nitrite [Negative] 1 /HPF (01/13/18 3:34 AM) UA WBC [0-5 /HPF] 5 /HPF *HI* (01/13/18 3:34 AM) UA RBC [0-2 /HPF] None Seen *NA* (01/13/18 3:34 AM) UA Sq Epi Few /LPF *NA* (01/13/18 3:34 AM) UA Mucus [None Seen /LPF] IMMUNOLOGY 1 2 3 Most recent to oldest [Reference Range]: Negative (01/14/18 4:37 AM) PAUL [Negative] Negative (01/14/18 4:37 AM) AMA Ab Scr [Negative] Negative (01/14/18 4:37 AM) SMA Screen [Negative] 33 mg/dL (01/14/18 4:37 AM) Ceruloplasmin [20-60 mg/dL] 241 mg/dL *HI* (01/14/18 4:37 AM) A-1-AT [83-199 mg/dL] 0.2 S/CO Ratio *NA* (01/13/18 1:31 PM) CMV IgM <0.2 AI (01/13/18 1:31 PM) EBV VCA IgM [<=0.8 AI] Negative 1 *NA* (01/14/18 4:37 AM) Hep E Ab IgG [Negative] Negative 2 *NA* (01/14/18 4:37 AM) Hep E Ab IgM [Negative] 1Result Comment: The Hepatitis E IgG assay is [...] of this test have been determined by [facility]. It has not been cleared or approved by the U.S. Food and Drug Administration. Results should be used in conjunction with clinical findings, and should not form the sole basis for a diagnosis or treatment decision. 2Result Comment: The Hepatitis E IgM assay is [...] of this test have been determined by [facility]. It has not been cleared or approved by the U.S. Food and Drug Administration. Results should be used in conjunction with clinical findings, and should not form the sole basis for a diagnosis or treatment decision. Performed At: [facility] [address] [place] [address] [id number] Jai Rowell PhD Ph:[phone] HEMATOLOGY 1 2 3 Most recent to oldest [Reference Range]: 5.3 K/CMM (01/14/18 4:37 AM) 5.4 K/CMM (01/13/18 3:34 AM) 5.6 K/CMM (01/12/18 10:45 PM) WBC [3.7-10.4 K/CMM] 3.55 M/CMM *LOW* (01/14/18 4:37 AM) 3.68 M/CMM *LOW* (01/13/18 3:34 AM) 3.54 M/CMM *LOW* (01/12/18 10:45 PM) RBC [4.70-6.10 M/CMM] 12.0 g/dL *LOW* (01/14/18 4:37 AM) 12.4 g/dL *LOW* (01/13/18 3:34 AM) 11.9 g/dL *LOW* (01/12/18 10:45 PM) Hgb [14.0-18.0 g/dL] 34.3 % *LOW* (01/14/18 4:37 AM) 35.5 % *LOW* (01/13/18 3:34 AM) 33.9 % *LOW* (01/12/18 10:45 PM) Hct [42.0-54.0 %] 96.7 fL *HI* (01/14/18 4:37 AM) 96.3 fL *HI* (01/13/18 3:34 AM) 95.7 fL *HI* (01/12/18 10:45 PM) MCV [80.0-94.0 fL] 33.7 pg *HI* (01/14/18 4:37 AM) 33.6 pg *HI* (01/13/18 3:34 AM) 33.7 pg *HI* (01/12/18 10:45 PM) MCH [27.0-31.0 pg] 34.8 g/dL (01/14/18 4:37 AM) 34.9 g/dL (01/13/18 3:34 AM) 35.3 g/dL (01/12/18 10:45 PM) MCHC [32.0-36.0 g/dL] 17.0 % *HI* (01/14/18 4:37 AM) 16.9 % *HI* (01/13/18 3:34 AM) 17.1 % *HI* (01/12/18 10:45 PM) RDW [11.5-14.5 %] 9.1 fL (01/14/18 4:37 AM) 8.9 fL (01/13/18 3:34 AM) 9.3 fL (01/12/18 10:45 PM) MPV [7.4-10.4 fL] 157 K/CMM (01/14/18 4:37 AM) 156 K/CMM (01/13/18 3:34 AM) 152 K/CMM (01/12/18 10:45 PM) Platelet [133-450 K/CMM] 65.3 % (01/14/18 4:37 AM) 63.8 % (01/13/18 3:34 AM) 65.1 % (01/12/18 10:45 PM) Segs [45.0-75.0 %] 21.3 % (01/14/18 4:37 AM) 23.2 % (01/13/18 3:34 AM) 21.1 % (01/12/18 10:45 PM) Lymphocytes [20.0-40.0 %] 10.4 % (01/14/18 4:37 AM) 9.8 % (01/13/18 3:34 AM) 11.0 % (01/12/18 10:45 PM) Monocytes [2.0-12.0 %] 1.7 % (01/14/18 4:37 AM) 2.8 % (01/13/18 3:34 AM) 1.5 % (01/12/18 10:45 PM) Eosinophils [0.0-4.0 %] 1.3 % *HI* (01/14/18 4:37 AM) 0.4 % (01/13/18 3:34 AM) 1.3 % *HI* (01/12/18 10:45 PM) Basophils [0.0-1.0 %] 3.5 K/CMM (01/14/18 4:37 AM) 3.4 K/CMM (01/13/18 3:34 AM) 3.7 K/CMM (01/12/18 10:45 PM) Segs-Bands # [1.5-8.1 K/CMM] 1.1 K/CMM (01/14/18 4:37 AM) 1.2 K/CMM (01/13/18 3:34 AM) 1.2 K/CMM (01/12/18 10:45 PM) Lymphocytes # [1.0-5.5 K/CMM] 0.5 K/CMM (01/14/18 4:37 AM) 0.5 K/CMM (01/13/18 3:34 AM) 0.6 K/CMM (01/12/18 10:45 PM) Monocytes # [0.0-0.8 K/CMM] 0.1 K/CMM (01/14/18 4:37 AM) 0.1 K/CMM (01/13/18 3:34 AM) 0.1 K/CMM (01/12/18 10:45 PM) Eosinophils # [0.0-0.5 K/CMM] 0.1 K/CMM (01/14/18 4:37 AM) 0.1 K/CMM (01/12/18 10:45 PM) Basophils # [0.0-0.2 K/CMM] 12.9 seconds (01/12/18 10:45 PM) PT [12.0-14.7 seconds] 0.97 (01/12/18 10:45 PM) INR [0.85-1.17] 29.2 seconds (01/12/18 10:45 PM) PTT [22.9-35.8 seconds] TUMOR MARKERS 1 2 3 Most recent to oldest [Reference Range]: 167.9 ng/mL *HI* (01/13/18 3:34 AM) AFP TM [0.0-11.0 ng/mL] Immunizations Not Given Vaccine Date Status Refusal Reason influenza virus vaccine, inactivated 01/13/18 Not Given Patient Refuses Procedures Procedure Date Related Diagnosis Body Site Status Colonoscopy1, 2 09/04/17 Completed 1repeat 09/15 2repeat 3 years Social History Social History Type Response Substance Abuse Use: None. Exercise Exercise type: Walking. Employment/School Status: Employed. 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 Alcohol Current, Type Beer. Frequency: 1-2 times per week. Smoking Status Current some day smoker; Type: Cigarettes; Concerns about tobacco use in household: No; Exposure to Tobacco Smoke self; Cigarette Smoking Last 365 Days Yes; Reg Smoking Cessation Counseling Yes entered on: 03/30/18 Assessment and Plan Extracted from: Title: Clinical Document Author: Kari Farr MD Date: [...] No edema Skin: No rash or echymossis [employer]: No gross motor/sensory defect Radiology Studies: Reviewed. Labs: Reviewed. VitalsTmp(F)Tmp(C)PrdfnWDBPCMrrlwBIOhU5WBV9DMKL9 01/14 11:2198.737.78rjxq788/81---[id number]------ 01/14 07:1698.236.94jtuz768/86---[id number]------ 01/14 04:1598.336.62hgoz928/76---203447------ 01/14 01:2599.237.26hxup112/72---261667------ 01/13 20:2398.536.69kmsm246/96---[id number]------ 24 Hr Tmax: 99.2F (37.33c) at 01/14 01:25Vital Signs are the last 5 in the past 48 hours. 24 Hr Tmin: 98.2F (36.78c) at 01/14 07:16Weights are the last 5 in 60 days, plus initial. DateWt(kg)Wt(lb)Ht(cm)Ht(in)MethodBMI 01/13 78.18 172.46707.10 65.00Measured 28.7 01/12 (initial) 81.36 179.00Estimated 29.9 33213.10 65.00Stated Most Recent Scores: 01/14/18Pain Intensity NRS (0-10)0 01/14/18Glasgow Coma Score15 01/14/18Johns Childs Fall Score6 01/14/18Braden Score20 Lines, Tubes, and Drains: 01/13/2018 04:34 Peripheral Lines: Forearm Left Over the needle catheter (no surgical procedures documented) I&ORecordInOutBal 1524hr Tot 483 0 483 1424hr Tot 730 0 730 24hr Labs 01/14 0535 U Amph ScrNegative U Sienna ScrNegative U Benzodia ScrNegative U Cannab ScrPositive U Cocaine ScrNegative U Opiate ScrPositive U Phencyc ScrNegative UDS NoteSee Note 01/14 0437 Sodium Rew155 Potassium Lvl3.6 Chloride Wgi941 CO226 AGAP11.6 Glucose Zbd939 H Creatinine Lvl0.71 BUN9 B/C Ratio13 Total Protein5.7 L Albumin Lvl2.2 L Globulin3.5 A/G Ratio0.6 L Calcium Lvl7.9 L ALT59 AST54 H Alk Kzwr430 H Bili Total7.6 H uDRU189 Ferritin Yhv2428 H Iron61 % Satur Fe34 RCFH869 L YMMR475 WBC5.3 RBC3.55 L Hgb12.0 L Hct34.3 L MCV96.7 H MCH33.7 H MCHC34.8 RDW17.0 H Pviqwhdq905 MPV9.1 Segs65.3 Ufrjdcasi20.4 Dpebmizawnc28.3 Eosinophils1.7 Basophils1.3 H Segs-Bands #3.5 Lymphocytes #1.1 Monocytes #0.5 Eosinophils #0.1 Basophils #0.1 A-1-AT241 H Gnfdtmileczxi29 01/13 1331 CMV IgM0.2 EBV VCA IgM<0.2 01/13 0334 AFP TM167.9 H Scheduled Meds (1): pantoprazole (Protonix) 40 [...] Voluntary Type of Urinary Elimination: Continent Extracted from: Title: Clinical Document Author: Kari Farr MD Date: [...] nausea and therefore stopped, seen by a supervising film or videotape editor Dr. Cardoso is given doxepin which states [...] mL 1,000 mL 75 ml/hr Allergies (1) ActiveReaction NKDANone documented Social History: Employment/School Details: Status: Employed. 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 Alcohol Details: Current, Type Beer. Frequency: 1-2 [...] Integument: rash, jaundice, generalized Vitals and Temp: VitalsTmp(F)JfbknHQVBPcC7ZBJ0 01/13 10:5698.297859/938954--- 01/13 07:[id number]--- 01/13 04:[id number]--- 01/13 04:[id number]--- 01/13 04:26 95--- 24 Hr Tmax: 98.7F (37.06c) at 01/12 20:54Vital Signs are the last 5 in the past 48 hours. Examination: Vitals: See above General: NAD Psych: alert ; ortiented x 3 Neck:supple CVS: s1s2 RRR Resp: CTA Bilaterally Abd : Soft, NT, ND , BS + Ext : No edema Skin: multiple itch rashid and all extremities [employer]: No gross motor/sensory defect Labs: Labs (Last four charted values) WBC 5.4(FEB 14)5.6(FEB 13) Hgb L 12.4(FEB 14)L 11.9(FEB 13) Hct L 35.5(FEB 14)L 33.9(FEB 13) Plt 156(FEB 14)152(FEB 13) Na 137(FEB 14)138(FEB 13) K L 3.4(FEB 14)3.7(FEB 13) CO2 25(FEB 14)25(FEB 13) Cl 102(FEB 14)105(FEB 13) Cr 0.66(FEB 14)0.76(FEB 13) BUN 13(FEB 14)16(FEB 13) Glucose Random 86(FEB 14)92(FEB 13) Mg 2.0(FEB 14) Ca L 7.8(FEB 14)L 8.1(FEB 13) PT 12.9(FEB 13) INR 0.97(FEB 13) PTT 29.2(FEB 13) Troponin <0.02(FEB 13) CK MB H 3.7(B 13) Total CK 191(FEB 13) Diagnostic Studies: Reviewed.
--- OUTSIDE RECORDS SUMMARY | 2019-08-26 05:48 | XMS REPORT | Summary of Care ---
Author Author [facility] Organization [facility] Address Unknown Phone Unavailable Encounter [facility] Bere_dary(FIN) [id number] Date(s): 12/23/17 - 12/24/17 [facility] [address], [address] [place], [place] [id number]- [phone] Vital Signs No data available for this [...] Reaction Severity Status NKDA Active Medications predniSONE 10 mg oral tablet 10 mg=1 tab, PO, Daily, X 10 day, # 10 tab, 0 Refill(s), Pharmacy: [id number] Start Date: 12/24/17 Stop Date: 01/03/18 Status: Completed Results No data available for this section Immunizations Not Given Vaccine Date Status Refusal Reason influenza virus vaccine, inactivated 01/13/18 Not Given Patient Refuses Procedures Procedure Date Related Diagnosis Body Site Status Colonoscopy1, 2 09/04/17 Completed 1repeat 09/15 2repeat 3 years Social History Social History Type Response Substance Abuse Use: None. Exercise Exercise type: Walking. Employment/School Status: Employed. 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 Alcohol Current, Type Beer. Frequency: 1-2 times per week. Smoking Status Current some day smoker; Type: Cigarettes; Concerns about tobacco use in household: No; Exposure to Tobacco Smoke self; Cigarette Smoking Last 365 Days Yes; Reg Smoking Cessation Counseling Yes entered on: 03/30/18 Assessment and Plan No data available for this section
--- OUTSIDE RECORDS SUMMARY | 2019-08-26 05:48 | XMS REPORT | Summary of Care ---
Author Author [facility] Organization [facility] Address Unknown Phone Unavailable Encounter IVETT Mckeon(ARNOLD) [id number] Date(s): 03/30/18 - 03/30/18 [facility] [address], [address] [place], [place] [address]- [phone] Discharge Disposition: Home or Self Care Attending Physician: Eileen Vital DO Vital Signs Most recent to 1 oldest [Reference Range]: Height 167.64 cm (03/30/18 11:23 AM) Temperature Oral 98.3 DegF [96.4-99.1 DegF] (03/30/18 11:23 AM) Blood Pressure 129/70 mmHg [90-140/60-90 mmHg] (03/30/18 11:23 AM) Respiratory Rate 14 BRMIN [14-20 BRMIN] (03/30/18 11:23 AM) Peripheral Pulse 75 bpm Rate [60-100 bpm] (03/30/18 11:23 AM) Weight 77.727 kg (03/30/18 11:23 AM) Body Mass Index 27.66 m2 (03/30/18 11:23 AM) Problem List Condition Effective Dates Status [...] Substance Reaction Severity Status NKDA Active Medications gabapentin 300 mg oral capsule 300 mg=1 cap, PO, TID, PRN Itching, # 90 cap, 2 Refill(s), Pharmacy: [id number] Start Date: 03/30/18 Status: Ordered ondansetron 4 mg oral tablet 4 mg=1 tab, PO, TID, # 30 tab, 2 Refill(s), Pharmacy[id number] Start Date: 03/30/18 Stop Date: 04/29/18 Status: Ordered tramadol 50 mg oral tablet 50 mg=1 tab, PO, Q6H, PRN Pain, X 14 day, # 60 tab, 1 Refill(s) Start Date: 03/30/18 Stop Date: 04/27/18 Status: Ordered Results No data available for this section Immunizations Not Given Vaccine Date Status Refusal Reason influenza virus vaccine, inactivated 01/13/18 Not Given Patient Refuses Procedures Procedure Date Related Diagnosis Body Site Status Colonoscopy1, 2 09/04/17 Completed 1repeat 09/15 2repeat 3 years Social History Social History Type Response Substance Abuse Use: None. Exercise Exercise type: Walking. Employment/School Status: Employed. 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 Alcohol Current, Type Beer. Frequency: 1-2 times per week. Smoking Status Current some day smoker; Type: Cigarettes; Concerns about tobacco use in household: No; Exposure to Tobacco Smoke self; Cigarette Smoking Last 365 Days Yes; Reg Smoking Cessation Counseling Yes entered on: 03/30/18 Assessment and Plan No data available for this section
--- OUTSIDE RECORDS SUMMARY | 2019-08-26 05:48 | XMS REPORT | Summary of Care ---
Author Author [facility] Organization [facility] Address Unknown Phone Unavailable Encounter IVETT Mckeon(ARNOLD) [id number] Date(s): 08/17/18 - 08/17/18 [facility] [address] [place] [address]- Encounter Diagnosis Abnormal levels of other serum enzymes (Final) - 08/21/18 Chronic viral hepatitis C (Final) - Alcoholic cirrhosis of liver without ascites (Final) - Portal hypertension (Final) - Essential (primary) hypertension (Final) - Localized edema (Final) - Pruritus, unspecified (Final) - Alcohol abuse, in remission (Final) - Cannabis abuse, uncomplicated (Final) - Obesity, unspecified (Final) - Body mass index (BMI) 31.0-31.9, adult (Final) - Nicotine dependence, cigarettes, uncomplicated (Final) - Discharge Disposition: Home or Self Care Attending Physician: Lusi Foy MD Vital Signs Most recent to 1 oldest [Reference Range]: Height 160.02 cm (08/17/18 8:18 AM) Blood Pressure 140/87 mmHg [90-140/60-90 mmHg] (08/17/18 8:18 AM) Respiratory Rate 18 BRMIN [14-20 BRMIN] (08/17/18 8:18 AM) Peripheral Pulse 62 bpm Rate [60-100 bpm] (08/17/18 8:18 AM) Weight 80.909 kg (08/17/18 8:18 AM) Body Mass Index 31.6 m2 (08/17/18 8:18 AM) Problem List Condition Effective Dates Status [...] Substance Reaction Severity Status NKDA Active Medications amoxicillin 500 mg oral tablet 1,000 mg=2 tab, PO, BID, X 14 day, # 56 tab, 0 Refill(s), Pharmacy: [id number] Start Date: 09/08/18 Stop Date: 09/22/18 Status: Completed atenolol 50 mg oral tablet 50 mg=1 tab, PO, Daily, # 30 tab, 0 Refill(s) Start Date: 08/17/18 Stop Date: 09/02/18 Status: Completed clarithromycin 500 mg oral tablet 500 mg=1 tab, PO, Q12H, X 14 day, # 28 tab, 0 Refill(s), Pharmacy: [facility] [address] Start Date: 09/08/18 Stop Date: 09/22/18 Status: Completed doxepin 25 mg oral capsule 25 mg=1 cap, PO, Bedtime, # 30 cap, 0 Refill(s) Start Date: 08/17/18 Stop Date: 09/27/18 Status: Discontinued folic acid 1 mg oral tablet 1 mg=1 tab, PO, Daily, # 90 tab, 0 Refill(s), Pharmacy: [facility] Start Date: 09/01/18 Status: Ordered Harvoni 90 mg-400 mg oral tablet 1 tab, PO, Daily, # 28 tab, 2 Refill(s), Pharmacy: [facility] Start Date: 09/01/18 Stop Date: 09/29/18 Status: Discontinued hydrOXYzine hydrochloride 25 mg oral tablet 25 mg=1 tab, PO, Bedtime, PRN itching, X 30 day, # 30 tab, 2 Refill(s), Pharmacy : [facility] [id number] Start Date: 08/17/18 Stop Date: 09/27/18 Status: Discontinued lactulose 10 g/15 mL oral syrup 20 gm=30 mL, PO, BID, (hyperammonia), X 30 day, # 1800 mL, 2 Refill(s), Pharmacy : [facility] [id number] Start Date: 08/17/18 Stop Date: 11/15/18 Status: Completed nadolol 20 mg oral tablet 20 mg=1 tab, PO, Bedtime, # 30 tab, 6 Refill(s), Pharmacy: [facility] [id number] Start Date: 09/02/18 Stop Date: 09/27/18 Status: Discontinued pantoprazole 40 mg oral enteric coated tablet 40 mg=1 tab, PO, BID, # 28 tab, 0 Refill(s), Pharmacy: [id number] [address] Start Date: 09/08/18 Stop Date: 09/27/18 Status: Discontinued Ribasphere 200 mg oral capsule 200 mg=1 cap, PO, BID, X 28 day, # 56 cap, 2 Refill(s), Pharmacy: [facility] Start Date: 09/01/18 Stop Date: 09/29/18 Status: Discontinued ursodiol 300 mg oral capsule 300 mg=1 cap, PO, TID, 0 Refill(s) Start Date: 08/17/18 Stop Date: 09/27/18 Status: Discontinued Results ELECTROLYTES Most recent to 1 oldest [Reference Range]: Sodium Lvl [135-145 141 mEq/L mEq/L] (08/17/18 10:30 AM) Potassium Lvl 3.8 mEq/L [3.5-5.1 mEq/L] (08/17/18 10:30 AM) Chloride Lvl [95-109 105 mEq/L mEq/L] (08/17/18 10:30 AM) CO2 [24-32 mEq/L] 29 mEq/L (08/17/18 10:30 AM) AGAP [10.0-20.0 10.8 mEq/L mEq/L] (08/17/18 10:30 AM) CHEM PANEL Most recent to 1 oldest [Reference Range]: Creatinine Lvl 0.81 mg/dL [0.50-1.40 mg/dL] (08/17/18 10:30 AM) eGFR 98 mL/min/1.73m2 1 *NA* (08/17/18 10:30 AM) BUN [7-22 mg/dL] 11 mg/dL (08/17/18 10:30 AM) Glucose Lvl [70-99 100 mg/dL mg/dL] *HI* (08/17/18 10:30 AM) Total Protein 7.4 g/dL [6.4-8.4 g/dL] (08/17/18 10:30 AM) Albumin Lvl [3.5-5.0 3.0 g/dL g/dL] *LOW* (08/17/18 10:30 AM) Globulin [2.7-4.2 4.4 g/dL g/dL] *HI* (08/17/18 10:30 AM) A/G Ratio [0.7-1.6] 0.7 (08/17/18 10:30 AM) Calcium Lvl 9.2 mg/dL [8.5-10.5 mg/dL] (08/17/18 10:30 AM) ALT [0-65 unit/L] 75 unit/L *HI* (08/17/18 10:30 AM) AST [0-37 unit/L] 107 unit/L *HI* (08/17/18 10:30 AM) Alk Phos [39-136 132 unit/L unit/L] (08/17/18 10:30 AM) Bili Total [0.2-1.3 3.3 mg/dL mg/dL] *HI* (08/17/18 10:30 AM) Bili Direct [0.0-0.3 2.5 mg/dL mg/dL] *HI* (08/17/18 10:30 AM) Bili Indirect 0.8 mg/dL [0.0-1.0 mg/dL] (08/17/18 10:30 AM) Ammonia [<=45.0 43.0 uMol/L uMol/L] (08/17/18 10:30 AM) 1Result Comment: The eGFR is calculated using [...] be mul tiplied by the estimated BMI. ANEMIA STUDY Most recent to 1 oldest [Reference Range]: Iron [45-160 ug/dl] 258 ug/dl *HI* (08/17/18 10:30 AM) Ferritin Lvl [22-275 590 ng/mL ng/mL] *HI* (08/17/18 10:30 AM) % Satur Fe [12-57 %] 96 % *HI* (08/17/18 10:30 AM) UIBC [110-370 ug/dl] 11 ug/dl *LOW* (08/17/18 10:30 AM) TIBC [228-428 ug/dl] 269 ug/dl (08/17/18 10:30 AM) DRUG SCREEN Most recent to 1 oldest [Reference Range]: Amph Scr [Negative] Negative (08/17/18 10:30 AM) Sienna Scr [Negative] Negative (08/17/18 10:30 AM) Benzodiaz Scr Negative [Negative] (08/17/18 10:30 AM) Cannab Scr Negative [Negative] (08/17/18 10:30 AM) Cocaine Scr Negative [Negative] (08/17/18 10:30 AM) Methadone Scr Negative [Negative] (08/17/18 10:30 AM) Opiate Scr Negative [Negative] (08/17/18 10:30 AM) Phencyclidine Scr Negative [Negative] (08/17/18 10:30 AM) 6-Acetylmor Scr Negative [Negative] (08/17/18 10:30 AM) Cutoff Values See Note (08/17/18 10:30 AM) TOXICOLOGY Most recent to 1 oldest [Reference Range]: Etoh (%) <.003 % *NA* (08/17/18 10:30 AM) Ethanol Lvl <3 mg/dL *NA* (08/17/18 10:30 AM) IMMUNOLOGY Most recent to 1 oldest [Reference Range]: IgG Lvl [700-1600 1690 mg/dL mg/dL] *HI* (08/17/18 10:30 AM) HIV Ag/Ab 4th Gen Negative [Negative] *NA* (08/17/18 10:30 AM) IgG1 [248-810 mg/dL] 1189 mg/dL *HI* (08/17/18 10:30 AM) IgG2 [130-555 mg/dL] 288 mg/dL *NA* (08/17/18 10:30 AM) IgG3 [15-102 mg/dL] 210 mg/dL *HI* (08/17/18 10:30 AM) IgG4 [2-96 mg/dL] 56 mg/dL 1 *NA* (08/17/18 10:30 AM) Hep A Tot [Negative] Positive *NA* (08/17/18 10:30 AM) Hep Bs Ab [<=7.4 <3.1 mIU/mL mIU/mL] (08/17/18 10:30 AM) Hep B Core Ab Positive [Negative] *NA* (08/17/18 10:30 AM) 1Result Comment: Performed At: [facility] [address] [id number] Soraida Calderon MD Ph:[phone] Performed At: [facility] [address] [id number] Rigo Rowell MD Ph:[phone] HEMATOLOGY Most recent to 1 oldest [Reference Range]: WBC [3.7-10.4 K/CMM] 4.1 K/CMM (08/17/18 10:30 AM) RBC [4.70-6.10 3.76 M/CMM M/CMM] *LOW* (08/17/18 10:30 AM) Hgb [14.0-18.0 g/dL] 13.0 g/dL *LOW* (08/17/18 10:30 AM) Hct [42.0-54.0 %] 37.4 % *LOW* (08/17/18 10:30 AM) MCV [80.0-94.0 fL] 99.6 fL *HI* (08/17/18 10:30 AM) MCH [27.0-31.0 pg] 34.6 pg *HI* (08/17/18 10:30 AM) MCHC [32.0-36.0 34.7 g/dL g/dL] (08/17/18 10:30 AM) RDW [11.5-14.5 %] 19.4 % *HI* (08/17/18 10:30 AM) MPV [7.4-10.4 fL] 10.1 fL (08/17/18 10:30 AM) Platelet [133-450 87 K/CMM K/CMM] *LOW* (08/17/18 10:30 AM) Segs [45.0-75.0 %] 59.0 % (08/17/18 10:30 AM) Lymphocytes 27.3 % [20.0-40.0 %] (08/17/18 10:30 AM) Monocytes [2.0-12.0 10.2 % %] (08/17/18 10:30 AM) Eosinophils [0.0-4.0 3.2 % %] (08/17/18 10:30 AM) Basophils [0.0-1.0 0.3 % %] (08/17/18 10:30 AM) Neutrophils # 2.4 K/CMM [1.5-8.1 K/CMM] (08/17/18 10:30 AM) Lymphocytes # 1.1 K/CMM [1.0-5.5 K/CMM] (08/17/18 10:30 AM) Monocytes # [0.0-0.8 0.4 K/CMM K/CMM] (08/17/18 10:30 AM) Eosinophils # 0.1 K/CMM [0.0-0.5 K/CMM] (08/17/18 10:30 AM) PT [12.0-14.7 14.3 seconds seconds] (08/17/18 10:30 AM) INR [0.85-1.17] 1.11 (08/17/18 10:30 AM) TUMOR MARKERS Most recent to 1 oldest [Reference Range]: CEA [0.0-3.0 ng/mL] 4.1 ng/mL *HI* (08/17/18 10:30 AM) CA 19-9 [0.0-35.0 24.2 unit/mL unit/mL] (08/17/18 10:30 AM) AFP TM [0.0-11.0 77.1 ng/mL ng/mL] *HI* (9/18/18 10:30 AM) Immunizations Not Given Vaccine Date Status Refusal Reason influenza virus vaccine, inactivated 01/13/18 Not Given Patient Refuses Procedures Procedure Date Related Diagnosis Body Site Status Colonoscopy1, 2 09/04/17 Completed 1repeat 09/15 2repeat 3 years Social History Social History Type Response Substance Abuse Use: None. Exercise Exercise type: Walking. Employment/School Status: Employed. 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 Alcohol Current, Type Beer. Frequency: 1-2 times per week. Smoking Status Former smoker; Type: Cigarettes; Concerns about tobacco use in household: No; Exposure to Tobacco Smoke self; Cigarette Smoking Last 365 Days Yes; Reg Smoking Cessation Counseling Yes1 entered on: 01/02/19 1STOP SMOKING IN THE LAST 6MONTHS Assessment and Plan No data available for this section
--- OUTSIDE RECORDS SUMMARY | 2019-08-26 05:48 | XMS REPORT | Summary of Care ---
Author Author [facility] Organization [facility] Address Unknown Phone Unavailable Encounter IVETT Mckeon(ARNOLD) [id number] Date(s): 10/19/18 - 10/19/18 [facility] [address] [place] [address] [phone] Encounter Diagnosis Other cirrhosis of liver (Final) - 10/25/18 Chronic viral hepatitis C (Final) - Other ascites (Final) - Esophageal varices without bleeding (Final) - Abnormality of alphafetoprotein (Final) - Alcoholic cirrhosis of liver with ascites (Final) - Secondary esophageal varices without bleeding (Final) - Portal hypertension (Final) - Helicobacter pylori [H. pylori] as the cause of diseases classified elsewhere (Final) - Obesity, unspecified (Final) - Personal history of colonic polyps (Final) - Personal history of nicotine dependence (Final) - Calculus of kidney (Final) - Discharge Disposition: Home or Self Care Attending Physician: Vanda Rashid MARKER HAND Vital Signs Most recent to 1 oldest [Reference Range]: Height 167.64 cm (10/19/18 8:52 AM) Blood Pressure 133/86 mmHg [90-140/60-90 mmHg] (10/19/18 8:52 AM) Respiratory Rate 16 BRMIN [14-20 BRMIN] (10/19/18 8:52 AM) Peripheral Pulse 69 bpm Rate [60-100 bpm] (10/19/18 8:52 AM) Weight 81.364 kg (10/19/18 8:52 AM) Body Mass Index 28.95 m2 (10/19/18 8:52 AM) Problem List Condition Effective Dates Status [...] Reactions, Alerts No Known Medication Allergies Medications Harvoni 90 mg-400 mg oral tablet 1 tab, PO, Daily, X 28 day, # 28 tab, 11 Refill(s), [facility], Patient is currently on therapy and this is an extention to 24 total weeks Start Date: 11/08/18 Stop Date: 01/18/19 Status: Discontinued Harvoni 90 mg-400 mg oral tablet 1 tab, PO, Daily, X 28 day, # 28 tab, 1 Refill(s), [facility], Patient is currently on therapy and this is an extention to 24 total weeks Start Date: 01/18/19 Stop Date: 03/15/19 Status: Completed omeprazole 20 mg oral enteric coated tablet 20 mg=1 tab, PO, Daily, Do not take Pantoprazole. Take Omeprazole 20mg with Harv ro on an empty stomach., # 90 tab, 0 Refill(s), Pharmacy: [id number] Start Date: 09/09/18 Stop Date: 12/08/18 Status: Ordered Ribasphere 200 mg oral capsule 200 mg=1 cap, PO, BID, X 28 day, # 56 cap, 1 Refill(s), Pharmacy: [facility], Patient is currently on therapy and this is an extention to 24 t otal weeks Start Date: 01/18/19 Stop Date: 01/18/19 Status: Discontinued Ribasphere 200 mg oral capsule 200 mg=1 cap, PO, Daily, X 28 day, # 28 cap, 11 Refill(s), Pharmacy: [facility], Patient is currently on therapy and this is an extention to 2 4 total weeks Start Date: 11/08/18 Stop Date: 01/18/19 Status: Discontinued Ribasphere 200 mg oral capsule See Instructions, 2 cap PO AM, 1 cap PO PM until completion of 24 weeks of Harvo ni therapy, # 84 cap, 1 Refill(s), [facility]acy: [facility], Ron nasrin 200mg BID script. Patient will take 400mg AM and 200mg PM. For questions co ntact [place]..Hillary Start Date: 01/18/19 Stop Date: 04/01/19 Status: Completed ribavirin 200 mg oral capsule =1 cap, PO, BID, # 56 unknown unit, Refill(s) 3, Pharmacy: [facility] Start Date: 11/03/18 Stop Date: 01/18/19 Status: Completed Results Most recent to 1 oldest [Reference Range]: Neutrophils # 1.1 K/CMM [1.5-8.1 K/CMM] *LOW* (10/19/18 10:30 AM) Lymphocytes # 1.3 K/CMM [1.0-5.5 K/CMM] (10/19/18 10:30 AM) Monocytes # [0.0-0.8 0.4 K/CMM K/CMM] (10/19/18 10:30 AM) Eosinophils # 0.1 K/CMM [0.0-0.5 K/CMM] (10/19/18 10:30 AM) Bili Indirect 0.5 mg/dL [0.0-1.0 mg/dL] (10/19/18 10:30 AM) eGFR 98 mL/min/1.73m2 1 *NA* (10/19/18 10:30 AM) A/G Ratio [0.7-1.6] 0.9 (10/19/18 10:30 AM) AFP TM [0.0-11.0 39.2 ng/mL ng/mL] *HI* (10/19/18 10:30 AM) Albumin Lvl [3.5-5.0 3.4 g/dL g/dL] *LOW* (10/19/18 10:30 AM) Alk Phos [39-136 99 unit/L unit/L] (10/19/18 10:30 AM) ALT [0-65 unit/L] 32 unit/L (10/19/18 10:30 AM) AGAP [10.0-20.0 10.7 mEq/L mEq/L] (10/19/18 10:30 AM) AST [0-37 unit/L] 36 unit/L (10/19/18 10:30 AM) Basophils [0.0-1.0 0.8 % %] (10/19/18 10:30 AM) BUN [7-22 mg/dL] 13 mg/dL (10/19/18 10:30 AM) Calcium Lvl 8.9 mg/dL [8.5-10.5 mg/dL] (10/19/18 10:30 AM) Chloride Lvl [95-109 106 mEq/L mEq/L] (10/19/18 10:30 AM) CO2 [24-32 mEq/L] 28 mEq/L (10/19/18 10:30 AM) Creatinine Lvl 0.79 mg/dL [0.50-1.40 mg/dL] (10/19/18 10:30 AM) Bili Direct [0.0-0.3 0.4 mg/dL mg/dL] *HI* (10/19/18 10:30 AM) Eosinophils [0.0-4.0 4.2 % %] *HI* (10/19/18 10:30 AM) Globulin [2.7-4.2 3.9 g/dL g/dL] (10/19/18 10:30 AM) Glucose Lvl [70-99 99 mg/dL mg/dL] (10/19/18 10:30 AM) Hct [42.0-54.0 %] 36.4 % *LOW* (10/19/18 10:30 AM) Hgb [14.0-18.0 g/dL] 12.2 g/dL *LOW* (10/19/18 10:30 AM) INR [0.85-1.17] 1.15 (10/19/18 10:30 AM) Potassium Lvl 3.7 mEq/L [3.5-5.1 mEq/L] (10/19/18 10:30 AM) Lymphocytes 44.5 % [20.0-40.0 %] *HI* (10/19/18 10:30 AM) Macrocyte [None 1+ Seen] *ABN* (10/19/18 10:30 AM) MCH [27.0-31.0 pg] 34.4 pg *HI* (10/19/18 10:30 AM) MCHC [32.0-36.0 33.6 g/dL g/dL] (10/19/18 10:30 AM) MCV [80.0-94.0 fL] 102.1 fL *HI* (10/19/18 10:30 AM) Monocytes [2.0-12.0 12.6 % %] *HI* (10/19/18 10:30 AM) MPV [7.4-10.4 fL] 9.8 fL (10/19/18 10:30 AM) Sodium Lvl [135-145 141 mEq/L mEq/L] (10/19/18 10:30 AM) Platelet [133-450 92 K/CMM K/CMM] *LOW* (10/19/18 10:30 AM) Segs [45.0-75.0 %] 37.9 % *LOW* (10/19/18 10:30 AM) Total Protein 7.3 g/dL [6.4-8.4 g/dL] (10/19/18 10:30 AM) PT [12.0-14.7 14.7 seconds seconds] (10/19/18 10:30 AM) RBC [4.70-6.10 3.56 M/CMM M/CMM] *LOW* (10/19/18 10:30 AM) RDW [11.5-14.5 %] 14.2 % (10/19/18 10:30 AM) Bili Total [0.2-1.3 0.9 mg/dL mg/dL] (10/19/18 10:30 AM) WBC [3.7-10.4 K/CMM] 3.0 K/CMM *LOW* (10/19/18 10:30 AM) HCV RNA VirLoad 19 IU/mL *NA* (10/19/18 10:30 AM) HCV RNA Log10 1.3 IU/mL *NA* (10/19/18 10:30 AM) 1Result Comment: The eGFR is [...] be mul tiplied by the estimated BMI. Immunizations Not Given Vaccine Date Status Refusal Reason influenza virus vaccine, inactivated 01/13/18 Not Given Patient Refuses Procedures Procedure Date Related Diagnosis Body Site Status Colonoscopy1, 2 09/04/17 Completed 1repeat 09/15 2repeat 3 years Social History Social History Type Response Substance Abuse Use: None. Exercise Exercise type: Walking. Employment/School Status: Employed. 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 Alcohol Current, Type Beer. Frequency: 1-2 [...]
--- OUTSIDE RECORDS SUMMARY | 2019-08-26 05:48 | XMS REPORT | Summary of Care ---
Author Author [facility] Organization [facility] Address Unknown Phone Unavailable Encounter IVETT Mckeon(ARNOLD) [id number] Date(s): 03/30/18 - 03/30/18 [facility] [address], [address] [place], [place] [address]- [phone] Discharge Disposition: Home or Self Care Attending [...] Itching, # 90 cap, 2 Refill(s), Pharmacy: [facility] [id number] Start Date: 03/30/18 Status: Ordered ondansetron 4 mg oral tablet 4 mg=1 tab, PO, TID, # 30 tab, 2 Refill(s), [id number] Start Date: 03/30/18 Stop Date: 04/29/18 Status: [...] type: Walking. Employment/School Status: Employed. 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 Alcohol Current, Type Beer. Frequency: 1-2 times per week. Smoking Status Current some day smoker; Type: Cigarettes; Concerns about tobacco use in household: No; Exposure to Tobacco Smoke self; Cigarette Smoking Last 365 Days Yes; Reg Smoking Cessation Counseling Yes entered on: 03/30/18 Assessment and Plan No data available for this section
--- OUTSIDE RECORDS SUMMARY | 2019-08-26 05:49 | XMS REPORT | Summary of Care ---
Author Author [facility] Organization [facility] Address Unknown Phone Unavailable Encounter HQ Linda(FIN) [id number] Date(s): 09/01/18 - 09/02/18 [facility] Vital Signs No data available for this [...] type: Walking. Employment/School Status: Employed. 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 Alcohol Current, Type Beer. Frequency: 1-2 [...]
--- OUTSIDE RECORDS SUMMARY | 2019-08-26 05:49 | XMS REPORT | Summary of Care ---
Author Author [facility] Organization [facility] Address Unknown Phone Unavailable Encounter [facility] Bere_dary(FIN) [id number] Date(s): 10/29/18 - 10/29/18 [facility] [address] [place] [address] [phone] Attending Physician: Vanda Rashid NP Referring Physician: [...] type: Walking. Employment/School Status: Employed. 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 Alcohol Current, Type Beer. Frequency: 1-2 [...]
--- OUTSIDE RECORDS SUMMARY | 2019-08-26 05:49 | XMS REPORT | Summary of Care ---
Author Author [facility] Organization [facility] Address Unknown Phone Unavailable Encounter HQ Linda(FIN) [phone] Date(s): 01/02/19 - 01/02/19 [facility] [address] [place] [address]- Encounter Diagnosis Kidney stones (Discharge Diagnosis) - 01/02/19 Discharge Disposition: Home or Self Care Attending Physician: Alysha Gonzales MD Vital Signs 1 2 3 Most recent to oldest [Reference Range]: 167.64 cm (01/02/19 6:05 PM) Height 98.1 DegF (01/02/19 10:00 PM) 98.4 DegF (01/02/19 7:56 PM) 99.2 DegF *HI* (01/02/19 6:05 PM) Temperature Oral [96.4-99.1 DegF] 102/58 mmHg (01/02/19 10:00 PM) 159/83 mmHg *HI* (01/02/19 7:56 PM) 159/82 mmHg *HI* (01/02/19 6:05 PM) Blood Pressure [90-140/60-90 mmHg] 20 BRMIN (01/02/19 10:00 PM) 19 BRMIN (01/02/19 7:56 PM) 18 BRMIN (01/02/19 6:05 PM) Respiratory Rate [14-20 BRMIN] 70 bpm (01/02/19 10:00 PM) 77 bpm (01/02/19 7:56 PM) 77 bpm (01/02/19 6:05 PM) Peripheral Pulse Rate [60-100 bpm] 84.091 kg (01/02/19 6:05 PM) Weight 29.92 m2 (01/02/19 6:05 PM) Body Mass Index Problem List Condition [...] Substance Reaction Severity Status NKDA Active Medications fentaNYL 50 microgram, Route: IVP, ONCE, Dosing Weight 84.091, kg, Priority: STAT, Start date: 01/02/19 21:40:00 CARD CUTTER, Stop date: 01/02/19 21:40:00 CARD CUTTER Start Date: 01/02/19 Stop Date: 01/02/19 Status: Completed Flexeril 10 mg oral tablet 10 mg=1 tab, PO, TID, PRN for spasm, X 7 day, # 21 tab, 0 Refill(s) Start Date: 01/02/19 Stop Date: 01/09/19 Status: Ordered Flomax 0.4 mg oral capsule 0.4 mg=1 cap, PO, Daily, # 14 cap, 0 Refill(s) Start Date: 01/02/19 Stop Date: 01/16/19 Status: Ordered morphine Sulfate 4 mg, Route: IVP, ONCE, Dosing Weight 84.091, kg, Priority: STAT, Start date: 20:15:00 CARD CUTTER, Stop date: 01/02/19 20:15:00 CARD CUTTER Start Date: 01/02/19 Stop Date: 01/02/19 Status: Completed [place] 7.5/325 oral tablet 1 tab, Route: PO, Drug Form: TAB, Dosing Weight 84.091, kg, ONCE, STAT, Start da te: 01/02/19 21:39:00 CARD CUTTER, Stop date: 01/02/19 21:39:00 CARD CUTTER Start Date: 01/02/19 Stop Date: 01/02/19 Status: Completed Sodium Chloride 0.9% (Bolus) IV 500 mL, 500 ml/hr, Infuse Over: 1 hr, Route: IV, ONCE, Priority: STAT, Dosing We ight 84.091 kg, Start date: 01/02/19 20:16:00 CARD CUTTER, Stop date: 01/02/19 20:16:00 CARD CUTTER Start Date: 01/02/19 Stop Date: 01/02/19 Status: Completed tramadol 50 mg oral tablet 50 mg=1 tab, PO, Q6H, PRN Pain Score 7-10, Do not drive or operate heavy machine ry. Do not take care of children. Medicine will make you drowsy., X 5 day, # 20 tab, 0 Refill(s) Start Date: 01/02/19 Stop Date: 01/07/19 Status: Ordered Zofran 4 mg, Route: IVP, Drug form: INJ, ONCE, Dosing Weight 84.091, kg, Priority: STAT , Start date: 01/02/19 20:16:00 CARD CUTTER, Stop date: 01/02/19 20:16:00 CARD CUTTER Start Date: 01/02/19 Stop Date: 01/02/19 Status: Completed Zofran ODT 4 mg oral tablet, disintegrating 4 mg=1 tab, PO, BID, PRN Nausea and Vomiting, Dissolve tab under tongue, # 10 ta b, 0 Refill(s) Start Date: 01/02/19 Stop Date: 01/07/19 Status: Ordered Results ELECTROLYTES Most recent to 1 oldest [Reference Range]: Sodium Lvl [135-145 139 mEq/L mEq/L] (01/02/19 8:00 PM) Potassium Lvl 3.8 mEq/L [3.5-5.1 mEq/L] (01/02/19 8:00 PM) Chloride Lvl [95-109 107 mEq/L mEq/L] (01/02/19 8:00 PM) CO2 [24-32 mEq/L] 29 mEq/L (01/02/19 8:00 PM) AGAP [10.0-20.0 6.8 mEq/L mEq/L] *LOW* (01/02/19 8:00 PM) CHEM PANEL Most recent to 1 oldest [Reference Range]: Creatinine Lvl 0.95 mg/dL [0.50-1.40 mg/dL] (01/02/19 8:00 PM) eGFR 87 mL/min/1.73m2 1 *NA* (01/02/19 8:00 PM) BUN [7-22 mg/dL] 13 mg/dL (01/02/19 8:00 PM) B/C Ratio [6-25] 14 (01/02/19 8:00 PM) Glucose Lvl [70-99 114 mg/dL mg/dL] *HI* (01/02/19 8:00 PM) Total Protein 8.4 g/dL [6.4-8.4 g/dL] (01/02/19 8:00 PM) Albumin Lvl [3.5-5.0 4.1 g/dL g/dL] (01/02/19 8:00 PM) Globulin [2.7-4.2 4.3 g/dL g/dL] *HI* (01/02/19 8:00 PM) A/G Ratio [0.7-1.6] 1.0 (01/02/19 8:00 PM) Calcium Lvl 9.5 mg/dL [8.5-10.5 mg/dL] (01/02/19 8:00 PM) ALT [0-65 unit/L] 33 unit/L (01/02/19 8:00 PM) AST [0-37 unit/L] 32 unit/L (01/02/19 8:00 PM) Alk Phos [39-136 108 unit/L unit/L] (01/02/19 8:00 PM) Bili Total [0.2-1.3 0.9 mg/dL mg/dL] (01/02/19 8:00 PM) 1Result Comment: The eGFR is calculated using [...] be mul tiplied by the estimated BMI. URINE AND STOOL Most recent to 1 oldest [Reference Range]: UA Turbidity [Clear] Clear (01/02/19 8:00 PM) UA Color [Yellow] Yellow *NA* (01/02/19 8:00 PM) UA pH [5.0-8.0] 7.0 (01/02/19 8:00 PM) UA Spec Grav 1.014 [<=1.030] (01/02/19 8:00 PM) UA Glucose Negative [Negative] *NA* (01/02/19 8:00 PM) UA Blood [Negative] Negative (01/02/19 8:00 PM) UA Ketones Negative [Negative] *NA* (01/02/19 8:00 PM) UA Protein Negative [Negative] (01/02/19 8:00 PM) UA Urobilinogen 0.2 EU/dL 1 [0.1-1.0 EU/dL] (01/02/19 8:00 PM) UA Bili [Negative] Negative *NA* (01/02/19 8:00 PM) UA Leuk Est Negative [Negative] (01/02/19 8:00 PM) UA Nitrite Negative [Negative] (01/02/19 8:00 PM) UA WBC [0-5 /HPF] 2 /HPF (01/02/19 8:00 PM) UA RBC [0-2 /HPF] 2 /HPF (01/02/19 8:00 PM) UA Sq Epi [Few] None Seen (01/02/19 8:00 PM) UA Mucus [None Seen Few /LPF /LPF] *NA* (01/02/19 8:00 PM) 1Result Comment: Urobilinogen performed on the [employer] analyzer. 01/02/2019 20:41 iko HEMATOLOGY Most recent to 1 oldest [Reference Range]: WBC [3.7-10.4 K/CMM] 4.5 K/CMM (01/02/19 8:00 PM) RBC [4.70-6.10 4.25 M/CMM M/CMM] *LOW* (01/02/19 8:00 PM) Hgb [14.0-18.0 g/dL] 13.9 g/dL *LOW* (01/02/19 8:00 PM) Hct [42.0-54.0 %] 41.0 % *LOW* (01/02/19 8:00 PM) MCV [80.0-94.0 fL] 96.5 fL *HI* (01/02/19 8:00 PM) MCH [27.0-31.0 pg] 32.7 pg *HI* (01/02/19 8:00 PM) MCHC [32.0-36.0 33.8 g/dL g/dL] (01/02/19 8:00 PM) RDW [11.5-14.5 %] 14.5 % (01/02/19 8:00 PM) MPV [7.4-10.4 fL] 9.4 fL (01/02/19 8:00 PM) Platelet [133-450 88 K/CMM K/CMM] *LOW* (01/02/19 8:00 PM) Segs [45.0-75.0 %] 68.5 % (01/02/19 8:00 PM) Lymphocytes 20.5 % [20.0-40.0 %] (01/02/19 8:00 PM) Monocytes [2.0-12.0 8.9 % %] (01/02/19 8:00 PM) Eosinophils [0.0-4.0 1.3 % %] (01/02/19 8:00 PM) Basophils [0.0-1.0 0.8 % %] (01/02/19 8:00 PM) Neutrophils # 3.1 K/CMM [1.5-8.1 K/CMM] (01/02/19 8:00 PM) Lymphocytes # 0.9 K/CMM [1.0-5.5 K/CMM] *LOW* (01/02/19 8:00 PM) Monocytes # [0.0-0.8 0.4 K/CMM K/CMM] (01/02/19 8:00 PM) Eosinophils # 0.1 K/CMM [0.0-0.5 K/CMM] (01/02/19 8:00 PM) Immunizations Not Given Vaccine Date Status Refusal Reason influenza virus vaccine, inactivated 01/13/18 Not Given Patient Refuses Procedures Procedure Date Related Diagnosis Body Site Status Colonoscopy1, 2 09/04/17 Completed 1repeat 09/15 2repeat 3 years Social History Social History Type Response Substance Abuse Use: None. Exercise Exercise type: Walking. Employment/School Status: Employed. 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 Alcohol Current, Type Beer. Frequency: 1-2 [...]
--- OUTSIDE RECORDS SUMMARY | 2019-08-26 05:49 | XMS REPORT | Summary of Care ---
Author Author Organization Address Unknown Phone Unavailable Encounter HQ Linda(ARNOLD) [id number] Date(s): 08/29/18 - 08/29/18 [address] [place] [address]- [phone] Encounter Diagnosis Chronic viral hepatitis C (Final) - 10/31/18 Other cirrhosis of liver (Final) - Other specified diseases of liver (Final) - Other ascites (Final) - Abnormality of alphafetoprotein (Final) - Discharge Disposition: Home or Self [...] No data available for this section Results CHEM PANEL Most recent to 1 oldest [Reference Range]: eGFR 98 mL/min/1.73m2 1 *NA* (08/29/18 7:33 AM) POC Creatinine 0.8 mg/dL [0.5-1.4 mg/dL] (08/29/18 7:33 AM) 1Result Comment: The eGFR is calculated [...] type: Walking. Employment/School Status: Employed. 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 Alcohol Current, Type Beer. Frequency: 1-2 [...]
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
--- OUTSIDE RECORDS SUMMARY | 2019-08-26 05:49 | XMS REPORT | Summary of Care ---
Author Author [facility] Organization [facility] Address Unknown Phone Unavailable Encounter IVETT Mckeon(ARNOLD) [id number] Date(s): 03/07/19 - 03/07/19 [facility] [address] [facility] [address] [place] [id number]- Discharge Disposition: Home or Self Care Attending Physician: Luis Foy MD Referring Physician: Vanda Rashid NP Vital Signs Most recent to 1 oldest [Reference Range]: Height 167.64 cm (03/07/19 8:51 AM) Blood Pressure 133/81 mmHg [90-140/60-90 mmHg] (03/07/19 8:51 AM) Respiratory Rate 16 BRMIN [14-20 BRMIN] (03/07/19 8:51 AM) Peripheral Pulse 52 bpm Rate [60-100 bpm] *LOW* (03/07/19 8:51 AM) Weight 78.636 kg (03/07/19 8:51 AM) Body Mass Index 27.98 m2 (03/07/19 8:51 AM) Problem List Condition Effective Dates Status [...] Substance Reaction Severity Status NKDA Active Medications lactulose 10 g/15 mL oral syrup 20 gm=30 mL, PO, Daily, PRN constipation Start Date: 03/07/19 Status: Ordered Results ELECTROLYTES Most recent to 1 oldest [Reference Range]: Sodium Lvl [135-145 140 mEq/L mEq/L] (03/07/19 9:50 AM) Potassium Lvl 4.0 mEq/L [3.5-5.1 mEq/L] (03/07/19 9:50 AM) Chloride Lvl [95-109 106 mEq/L mEq/L] (03/07/19 9:50 AM) CO2 [24-32 mEq/L] 30 mEq/L (03/07/19 9:50 AM) AGAP [10.0-20.0 8.0 mEq/L mEq/L] *LOW* (03/07/19 9:50 AM) CHEM PANEL Most recent to 1 oldest [Reference Range]: Creatinine Lvl 0.74 mg/dL [0.50-1.40 mg/dL] (03/07/19 9:50 AM) eGFR 101 mL/min/1.73m2 1 *NA* (03/07/19 9:50 AM) BUN [7-22 mg/dL] 9 mg/dL (03/07/19 9:50 AM) Glucose Lvl [70-99 91 mg/dL mg/dL] (03/07/19 9:50 AM) Total Protein 7.5 g/dL [6.4-8.4 g/dL] (03/07/19 9:50 AM) Albumin Lvl [3.5-5.0 3.9 g/dL g/dL] (03/07/19 9:50 AM) Globulin [2.7-4.2 3.6 g/dL g/dL] (03/07/19 9:50 AM) A/G Ratio [0.7-1.6] 1.1 (03/07/19 9:50 AM) Calcium Lvl 9.2 mg/dL [8.5-10.5 mg/dL] (03/07/19 9:50 AM) ALT [0-65 unit/L] 28 unit/L (03/07/19 9:50 AM) AST [0-37 unit/L] 22 unit/L (03/07/19 9:50 AM) Alk Phos [39-136 107 unit/L unit/L] (03/07/19 9:50 AM) Bili Total [0.2-1.3 0.7 mg/dL mg/dL] (03/07/19 9:50 AM) Bili Direct [0.0-0.3 0.2 mg/dL mg/dL] (03/07/19 9:50 AM) Bili Indirect 0.5 mg/dL [0.0-1.0 mg/dL] (03/07/19 9:50 AM) 1Result Comment: The eGFR is calculated [...] be mul tiplied by the estimated BMI. HEMATOLOGY Most recent to 1 oldest [Reference Range]: WBC [3.7-10.4 K/CMM] 3.2 K/CMM *LOW* (03/07/19 9:50 AM) RBC [4.70-6.10 4.08 M/CMM M/CMM] *LOW* (03/07/19 9:50 AM) Hgb [14.0-18.0 g/dL] 13.1 g/dL *LOW* (03/07/19 9:50 AM) Hct [42.0-54.0 %] 39.6 % *LOW* (03/07/19 9:50 AM) MCV [80.0-94.0 fL] 97.0 fL *HI* (03/07/19 9:50 AM) MCH [27.0-31.0 pg] 32.1 pg *HI* (03/07/19 9:50 AM) MCHC [32.0-36.0 33.1 g/dL g/dL] (03/07/19 9:50 AM) RDW [11.5-14.5 %] 15.1 % *HI* (03/07/19 9:50 AM) MPV [7.4-10.4 fL] 9.4 fL (03/07/19 9:50 AM) Platelet [133-450 103 K/CMM K/CMM] *LOW* (03/07/19 9:50 AM) Segs [45.0-75.0 %] 55.4 % (03/07/19 9:50 AM) Lymphocytes 29.8 % [20.0-40.0 %] (03/07/19 9:50 AM) Monocytes [2.0-12.0 8.6 % %] (03/07/19 9:50 AM) Eosinophils [0.0-4.0 5.5 % %] *HI* (03/07/19 9:50 AM) Basophils [0.0-1.0 0.7 % %] (03/07/19 9:50 AM) Neutrophils # 1.8 K/CMM [1.5-8.1 K/CMM] (03/07/19 9:50 AM) Lymphocytes # 0.9 K/CMM [1.0-5.5 K/CMM] *LOW* (03/07/19 9:50 AM) Monocytes # [0.0-0.8 0.3 K/CMM K/CMM] (03/07/19 9:50 AM) Eosinophils # 0.2 K/CMM [0.0-0.5 K/CMM] (03/07/19 9:50 AM) PT [12.0-14.7 14.0 seconds seconds] (03/07/19 9:50 AM) INR [0.85-1.17] 1.10 (03/07/19 9:50 AM) TUMOR MARKERS Most recent to 1 oldest [Reference Range]: AFP TM [0.0-11.0 6.8 ng/mL ng/mL] (03/07/19 9:50 AM) MOLECULAR DIAGNOSTIC Most recent to 1 oldest [Reference Range]: HCV RNA VirLoad Not Detected (03/07/19 9:50 AM) HCV RNA Log10 <1.2 IU/mL *NA* (03/07/19 9:50 AM) Immunizations Not Given Vaccine Date Status Refusal Reason influenza virus vaccine, inactivated 01/13/18 Not Given Patient Refuses Procedures Procedure Date Related Diagnosis Body Site Status Colonoscopy1, 2 09/04/17 Completed 1repeat 09/15 2repeat 3 years Social History Social History Type Response Substance Abuse Use: None. Exercise Exercise type: Walking. Employment/School Status: Employed. 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 Alcohol Current, Type Beer. Frequency: 1-2 [...]
--- OUTSIDE RECORDS SUMMARY | 2019-08-26 05:49 | XMS REPORT | Summary of Care ---
Author Author [facility] Organization [facility] Address Unknown Phone Unavailable Encounter IVETT Mckeon(ARNOLD) [id number] Date(s): 09/02/18 - 09/02/18 [facility] [address] [address]- [phone] Encounter Diagnosis Portal hypertension (Final) - 09/08/18 Other diseases of stomach and duodenum (Final) - Alcoholic cirrhosis of liver without ascites (Final) - Diaphragmatic hernia without obstruction or gangrene (Final) - Secondary esophageal varices without bleeding (Final) - Chronic superficial gastritis without bleeding (Final) - Helicobacter pylori [H. pylori] as the cause of diseases classified elsewhere (Final) - Personal history of nicotine dependence (Final) - Unspecified viral hepatitis C without hepatic coma (Final) - Essential (primary) hypertension (Final) - Obesity, unspecified (Final) - Discharge Disposition: Home or Self Care Attending Physician: Luis Foy MD Referring Physician: Luis Foy MD Vital Signs No data available for [...] Reaction Severity Status NKDA Active Medications No Known Medications Results No data available for this section Immunizations Not Given Vaccine Date Status Refusal Reason influenza virus vaccine, inactivated 01/13/18 Not Given Patient Refuses Procedures Procedure Date Related Diagnosis Body Site Status Colonoscopy1, 2 09/04/17 Completed 1repeat 09/15 2repeat 3 years Social History Social History Type Response Substance Abuse Use: None. Exercise Exercise type: Walking. Employment/School Status: Employed. 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 Alcohol Current, Type Beer. Frequency: 1-2 [...]
--- OUTSIDE RECORDS SUMMARY | 2019-08-26 05:49 | XMS REPORT ---
Author Author [facility] Address Unknown Phone Unavailable Care Team Providers Care Gyro Mechanic Name Role Phone Sorin SLATER Unavailable Unavailable Problems This patient has no known problems. Allergies, Adverse Reactions, Alerts This patient has no known allergies or adverse reactions. Medications This patient has no known medications. Encounters Start Date/Time End Date/Time Encounter Type Admission Type Attending Clinicians Care Facility Care Department Encounter ID 2019-07-04 11:16:00 2019-07-04 11:16:00 Outpatient [facility] [id number] 2019-03-07 08:45:00 2019-03-07 08:45:00 Outpatient [facility] [id number] Results Test Description Test Time Test Comments Text Results Atomic Results Result Comments CHEST 2 VIEWS 2019-08-23 17:45:00 [place] [address] Patient Name: AMARI JEAN MR #: [id number] : 1960 Age/Sex: 58/M Req #: [id number] Adm Physician: Ordered by: BHAKTI SLATER MD Report #: [id number] Location: OR Room/Bed: Procedure: [id number] DX/CHEST 2 VIEWS Exam Date: 08/23/19 Exam Time: 1715 REPORT STATUS: Signed Frontal and lateral views of the chest. HISTORY: Preop, screening colonoscopy COMPARISON: None available. DISCUSSION: Lungs: No evidence of a consolidative pneumonia or pulmonary alveolar edema. Pleura: No pleural effusion or pneumothorax. Heart and mediastinum: The cardiomediastinal silhouette appear(s) unremarkable. Bones and soft tissues: Mild right convex curvature of the thoracic spine. IMPRESSION: No acute radiographic abnormality. Signed by: Dr. Radames Johns D.O., M.M.M. on 08/23/2019 5:46 PM Dictated By: RADAMES JOHNS DO 45 Transcribed By: REBA on 08/23/191745 COPY TO: BHAKTI SLATER MD
--- OUTSIDE RECORDS SUMMARY | 2019-08-26 05:49 | XMS REPORT | Summary of Care ---
Author Author [facility] Organization [facility] Address Unknown Phone Unavailable Encounter IVETT Mckeon(ARNOLD) [id number] Date(s): 09/27/18 - 09/27/18 [facility] [address] [facility] [address] [facility] [address] [place] [address]- Encounter Diagnosis Chronic viral hepatitis C (Final) - 10/01/18 Alcoholic cirrhosis of liver with ascites (Final) - Portal hypertension (Final) - Essential (primary) hypertension (Final) - Secondary esophageal varices without bleeding (Final) - Helicobacter pylori [H. pylori] as the cause of diseases classified elsewhere (Final) - Abnormality of alphafetoprotein (Final) - Elevated carcinoembryonic antigen [CEA] (Final) - Alcohol abuse, in remission (Final) - Contact with and (suspected) exposure to viral hepatitis (Final) - Personal history of nicotine dependence (Final) - Discharge Disposition: Home or Self Care Attending Physician: Vanda Rashid NP Vital Signs Most recent to 1 oldest [Reference Range]: Height 167.64 cm (09/27/18 9:42 AM) Blood Pressure 145/91 mmHg [90-140/60-90 mmHg] *HI* (09/27/18 9:42 AM) Respiratory Rate 16 BRMIN [14-20 BRMIN] (09/27/18 9:42 AM) Peripheral Pulse 73 bpm Rate [60-100 bpm] (09/27/18 9:42 AM) Weight 78.182 kg (09/27/18 9:42 AM) Body Mass Index 27.82 m2 (09/27/18 9:42 AM) Problem List Condition Effective Dates Status [...] Daily, # 28 tab, 1 Refill(s), Pharmacy: [facility], Patient had 1 fill at another pharmacy, script needs to be filled [facility] Start Date: 09/29/18 Stop Date: 11/26/18 Status: Completed magnesium amino acids chelate PO, 0 Refill(s) Start Date: 09/27/18 Stop Date: 10/19/18 Status: Discontinued nadolol 40 mg oral tablet 40 mg=1 tab, PO, Daily, take at night, # 30 tab, 3 Refill(s), Pharmacy: [facility] [id number] Start Date: 09/27/18 Stop Date: 01/25/19 Status: Ordered Ribasphere 200 mg oral capsule 200 mg=1 cap, PO, Daily, X 28 day, # 28 cap, 1 Refill(s), Pharmacy: [facility] [place], Patient had 1 fill at another pharmacy, script needs to be arturo led [facility] Start Date: 09/29/18 Stop Date: 11/03/18 Status: Completed Results Most recent to 1 oldest [Reference Range]: Neutrophils # 3.0 K/CMM [1.5-8.1 K/CMM] (09/27/18 11:05 AM) Lymphocytes # 1.4 K/CMM [1.0-5.5 K/CMM] (09/27/18 11:05 AM) Monocytes # [0.0-0.8 0.7 K/CMM K/CMM] (09/27/18 11:05 AM) Eosinophils # 0.2 K/CMM [0.0-0.5 K/CMM] (09/27/18 11:05 AM) Apolipoprotein A-1 132 mg/dL [101-178 mg/dL] *NA* (09/27/18 11:05 AM) Fibrosis Score 0.91 [0.00-0.21] *HI* (09/27/18 11:05 AM) Fibrosis Stage Comment 1 *NA* (09/27/18 11:05 AM) Necroinflam Act. A0-A1 Grade *NA* (09/27/18 11:05 AM) Necroinflam Act. 0.29 Score [0.00-0.17] *HI* (09/27/18 11:05 AM) Fibrosis Interp Comment 2 *NA* (09/27/18 11:05 AM) Bili Indirect 0.5 mg/dL [0.0-1.0 mg/dL] (09/27/18 11:05 AM) Fibrosis Scoring Comment 3 *NA* (09/27/18 11:05 AM) Liver Fibrosis Comment 4 Comment 2 *NA* (09/27/18 11:05 AM) Liver Fibrosis Comment 5 Limitations *NA* (09/27/18 11:05 AM) Necroinflam Act Comment 6 Scoring *NA* (09/27/18 11:05 AM) eGFR 100 mL/min/1.73m2 7 *NA* (09/27/18 1105 AM) A/G Ratio [0.7-1.6] 0.8 (09/27/18 11:05 AM) A 2 Macroglob 420 mg/dL [110-276 mg/dL] *HI* (09/27/18 11:05 AM) AFP TM [0.0-11.0 173.1 ng/mL ng/mL] *HI* (09/27/18 11:05 AM) Albumin Lvl [3.5-5.0 3.2 g/dL g/dL] *LOW* (09/27/18 1105 AM) Alk Phos [39-136 107 unit/L unit/L] (09/27/18 11:05 AM) ALT [0-65 unit/L] 34 unit/L (09/27/18 11:05 AM) ALT [0-55 IU/L] 29 IU/L *NA* (09/27/18 11:05 AM) AGAP [10.0-20.0 13.7 mEq/L mEq/L] (09/27/18 11:05 AM) AST [0-37 unit/L] 39 unit/L *HI* (09/27/18 1105 AM) Basophils [0.0-1.0 0.6 % %] (09/27/1805 AM) BUN [7-22 mg/dL] 10 mg/dL (09/27/1805 AM) Calcium Lvl 8.8 mg/dL [8.5-10.5 mg/dL] (09/27/18 AM) Chloride Lvl [95-109 104 mEq/L mEq/L] (09/27/18 AM) CO2 [24-32 mEq/L] 27 mEq/L (09/27/1805 AM) Creatinine Lvl 0.77 mg/dL [0.50-1.40 mg/dL] (09/27/18 AM) Bili Direct [0.0-0.3 0.9 mg/dL mg/dL] *HI* (09/27/18 AM) Eosinophils [0.0-4.0 3.6 % %] (09/27/18) GGT [0-65 IU/L] 77 IU/L *HI* (09/27/18 AM) Globulin [2.7-4.2 4.2 g/dL g/dL] (09/27/18 AM) Glucose Lvl [70-99 98 mg/dL mg/dL] (09/27/18) Haptoglobin [34-200 63 mg/dL mg/dL] *NA* (09/27/18 AM) Hct [42.0-54.0 %] 36.6 % *LOW* (09/27/18) Hgb [14.0-18.0 g/dL] 12.5 g/dL *LOW* (09/27/18 AM) INR [0.85-1.17] 1.11 (09/27/18 AM) Potassium Lvl 3.7 mEq/L [3.5-5.1 mEq/L] (09/27/18 AM) Lymphocytes 26.1 % [20.0-40.0 %] (09/27/18 AM) Macrocyte [None 1+ Seen] *ABN* (09/27/18) MCH [27.0-31.0 pg] 35.3 pg *HI* (09/27/18 11:05 AM) MCHC [32.0-36.0 34.1 g/dL g/dL] (09/27/18 11:05 AM) MCV [80.0-94.0 fL] 103.8 fL *HI* (09/27/18 11:05 AM) Monocytes [2.0-12.0 12.3 % %] *HI* (09/27/18 1105 AM) MPV [7.4-10.4 fL] 9.4 fL (09/27/18 11:05 AM) Sodium Lvl [135-145 141 mEq/L mEq/L] (09/27/18 1105 AM) Platelet [133-450 89 K/CMM K/CMM] *LOW* (09/27/18 1105 AM) Segs [45.0-75.0 %] 57.4 % (09/27/18 11:05 AM) Total Protein 7.4 g/dL [6.4-8.4 g/dL] (09/27/18 1105 AM) PT [12.0-14.7 14.3 seconds seconds] (09/27/18 11:05 AM) RBC [4.70-6.10 3.53 M/CMM M/CMM] *LOW* (09/27/18 1105 AM) RDW [11.5-14.5 %] 14.9 % *HI* (09/27/18 11:05 AM) Bili Total [0.2-1.3 1.4 mg/dL mg/dL] *HI* (09/27/18 11:05 AM) Bili Total [0.0-1.2 1.5 mg/dL mg/dL] *HI* (09/27/18 11:05 AM) WBC [3.7-10.4 K/CMM] 5.3 K/CMM (09/27/18 11:05 AM) DNA Mutation Comment 8 Analysis *NA* (09/27/18 11:05 AM) HCV RNA VirLoad 278 IU/mL *NA* (09/27/18 11:05 AM) HCV RNA Log10 2.4 IU/mL *NA* (09/27/18 11:05 AM) Hep B PCR Qnt Not Detected (09/27/18 11:05 AM) HBV DNA Log10 <1.3 IU/mL *NA* (09/27/18 11:05 AM) 1Result Comment: F4 - Cirrhosis 2Result Comment: Quantitative results of 6 biochemical tests are analyzed using a computational algorithm to provide a quantitative surrogate marker (0.0-1.0) for liver fibrosis (METAVIR F0- F4) and for necroinflammatory activity (METAVIR A0-A3). 3Result Comment: <0.21=Stage F0 - No fibrosis 0.21 - 0.27=Stage F0 - F1 0.27 - 0.31=Stage F1 - Portal fibrosis 0.31 - 0.48=Stage F1 - F2 0.48 - 0.58=Stage F2 - Bridging fibrosis with few septa 0.58 - 0.72=Stage F3 - Bridging fibrosis with many septa 0.72 - 0.74=Stage F3 - F4 >0.74=Stage F4 - Cirrhosis 4Result Comment: This test was developed and its performance characteristics determined by [facility]. It has not been cleared or approved by the Food and Drug Administration. The FDA has determined that such clearance or approval is not necessary. For questions regarding this report please contact customer service at . Performed At: [address] [id number] Norman Bang MD Ph:[phone] 5Result Comment: The negative predictive value of a [...] fibrosis and necroinflammatory activity in the liver. 6Result Comment: <0.17=Grade A0 - No Activity 0.17 - 0.29=Grade A0 - A1 0.29 - 0.36=Grade A1 - Minimal activity 0.36 - 0.52=Grade A1 - A2 0.52 - 0.60=Grade A2 - Moderate activity 0.60 - 0.62=Grade A2 - A3 >0.62=Grade A3 - Severe activity 7Result Comment: The eGFR is calculated using the [...] be mul tiplied by the estimated BMI. 8Result Comment: NO MUTATION IDENTIFIED Interpretation: This patient's sample was analyzed for the hereditary hemochromatosis (HH) mutations C282Y, H63D, S65C. No mutation was identified. The mutations analyzed by [facility] are most common in the population, and [...] findings and other test results such as transferrin-iron saturation and/or serum ferritin studies and/or liver biopsy. If this patient has a history of HH, in many cases a specific carrier risk can be determined based on this negative result. Methodology: DNA Analysis of the HFE gene was performed by PCR amplification followed by restriction enzyme digestion analyses. Reference: Eze JS and Dandre AP. (2000). Ashleigh Test 4:97-101. Lashanda ME et al. (1999). AM J Prev Med 16:134-140. Dia Edward (2002). Lancet 360(7640):1673-97. Jocelyn Gonzalez al. (2002). Blood Cells, Molecules. and Diseases. 29(3):418-432. Jeer Paredes et al. (2003). Ashleigh Med. 5(1):1-8. Lashanda ME et al. (2003). Ashleigh Med. 5(4):304-10. This test was developed and its performance characteristics determined by [facility]. It has not been cleared or approved by the Food and Drug Administration. Genetic counselors are available for health care providers to discuss results at [phone]. Elisabet Terry, PhD, FACMG Aide Maria, PhD, FACMG Shon PritchettS., PhD, FACMG Kimberley Guy, PhD, FACMG Leroy Sanchez, PhD, FACMG Jose Alberto Gillette, PhD, FACMG Performed At: [facility] [address], [place] [id number] Bobby Canela MD Ph:[phone] Immunizations Not Given Vaccine Date Status Refusal Reason influenza virus vaccine, inactivated 01/13/18 Not Given Patient Refuses Procedures Procedure Date Related Diagnosis Body Site Status Colonoscopy1, 2 09/04/17 Completed 1repeat 09/15 2repeat 3 years Social History Social History Type Response Substance Abuse Use: None. Exercise Exercise type: Walking. Employment/School Status: Employed. 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 Alcohol Current, Type Beer. Frequency: 1-2 times per week. Smoking Status Former smoker; Type: Cigarettes; Concerns about tobacco use in household: No; Exposure to Tobacco Smoke self; Cigarette Smoking Last 365 Days Yes; Reg Smoking Cessation Counseling Yes1 entered on: 03/07/19 1STOP SMOKING IN THE LAST 6MONTHS Assessment and Plan No data available for this section
[2019-08-26 10:25] VITALS: BP 130/80
== END | disposition home or self-care (01) ==
LOC: OR 05:37
PROVIDERS: ATTEND Surgery
DX: Z12.11 Encounter for screening for malignant neoplasm of colon (principal); Z86.010 Personal history of colon polyps; Z98.0 Intestinal bypass and anastomosis status; E11.9 Type 2 diabetes mellitus without complications; Z01.810 Encounter for preprocedural cardiovascular examination; Z01.812 Encounter for preprocedural laboratory examination; Z01.818 Encounter for other preprocedural examination
CPT/HCPCS: 36415; 45378; 71046; 80048; 80076; 85025; 93005; J2001; J2250; J2704; J3010